=== PATIENT | female | born 1955 | race Caucasian/White ===

== ENCOUNTER → 2020-01-24 11:08 | Outpatient (CLI) | payer MEDICARE, OTHER, SELFPAY ==
--- NOTE | 2020-01-23 18:47 | HP.PCM_ITS ---
History and Physical Date of Admission: 01/24/20 HISTORY AND PHYSICAL - BREAST COMPLAINT ? Lizbeth Rodriguez 1955 ? ? REFERRING PHYSICIAN: Aylin Aguirre ([facility]), * ? CHIEF COMPLAINT: Palpable breast mass, left breast microcalcifications ? HPI: The patient is a 64 year old female with a complaint of a palpable breast mass. The patient notes a mass in the retroaerolar portion of her left breast. The patient has noticed this mass for 4 months. The patient had a mammogram with ultrasound on January 11, 2020 which demonstrated: ? Mammogram - IMPRESSION: SUSPICIOUS FINDING - BIOPSY SHOULD BE CONSIDERED The new grouped pleomorphic calcifications in the left breast are suspicious of malignancy. ?A stereotactic biopsy is recommended. There is no abnormality seen in the left breast to correspond with the discharge from the nipple, however, clinical correlation is recommended. ? Ultrasound: ? IMPRESSION: BENIGN FINDING There is no sonographic evidence of malignancy. The 4 cm cyst in the left breast at 3 o'clock anterior depth is benign. The 2 cm cyst in the left breast at 1 o'clock middle depth is benign. There is no abnormality seen in the left breast to correspond with the discharge from the nipple, however, clinical correlation is recommended. ? She somewhat irregularly perform a self breast exam routinely. She notes no skin changes. She notes occasional clear nipple discharge. She notes no axillary masses. She notes no first-degree family history of breast problems but her aunt has a diagnosis of breast cancer and her aunt and mother were twins. She notes no significant breast trauma or breast difficulties in the past. She notes that her breast cysts were more tender in the past but notes no pain in the cyst currently. ? The patient has had 3 pregnancies. Her last mammogram was 2018. Her last menstrual period was ?. Her first menstrual period was at age ?. ? The patient is being seen by me today at the request of Aylin Aguirre for my opinion and advice regarding abnormal left breast imaging and breast cysts. ? PAST MEDICAL HISTORY PAST MEDICAL HISTORY Diagnosis Date ? Unspecified hypothyroidism ? ? ? PAST SURGICAL HISTORY PAST SURGICAL HISTORY Procedure Laterality Date ? BX OF BREAST; INCISIONAL ? ? ? LUMPECTOMY R BREAST BENIGN ? DELIVERY ONLY ? ? ? , low cervical X3 ? COLONOSCOP W/ OR W/O BRSH SPEC ? 05/05/2018 ? Colonoscopy ? EGD W/O OR W/BRUSH/WASH ? 05/05/2018 ? EGD ? LIGATE FALLOPIAN TUBE ? ? ? Tubal ligation ? PAST SURGICAL HISTORY OF ? ? ? CYST REMOVED ON WRIST ? ? ? CURRENT MEDICATIONS Current Outpatient Medications Medication Sig Dispense Refill ? levothyroxine (SYNTHROID) 112 mcg tablet Take 1 tablet by mouth once daily. Take on empty stomach. For thyroid 30 tablet 3 ? cholecalciferol, vitamin D3, (VITAMIN D3 ORAL) Take by mouth. ? ? ? CALCIUM ORAL Take by mouth. ? ? ? MULTI-VITAMIN ORAL Take by mouth. ? ? ? No current facility-administered medications for this visit. ? ? ALLERGIES: Bactrim [Sulfamethoxazole-Trimethoprim], Codeine, and Sulfa (Sulfonamide Antibiotics) ? PERSONAL HISTORY: SOCIAL HISTORY Social History ? Tobacco Use ? Smoking status: Former Smoker ? ? Types: Cigarettes ? Smokeless tobacco: Never Used ? Tobacco comment: quit 8 years ago Substance Use Topics ? Alcohol use: Yes ? ? Comment: occasionally ? Drug use: No ? FAMILY HISTORY: FAMILY HISTORY FAMILY HISTORY Problem Relation Age of Onset ? other (alzheimers) Mother ? ? diagnosed age early 60's -- possibly related to an MVA ? Coronary Artery Disease Father ? ? first NV age early 70's ? Colon Cancer Father ? ? Liver Disease Father ? ? Cirrhosis ? other (depression) Father ? ? Colon Cancer Other ? ? none ? Diabetes Other ? ? none ? ? REVIEW OF SYMPTOMS: The review of systems data was entered by the nurse and reviewed by me ? Nursing Notes: Xiomara Amador Ma 01/19/2020 4:08 PM Signed ? AMB ROOMING INTAKE FLOWSHEET DATA Risk Screening Do you have concerns about personal safety or safety in the home?: No ? with patient today. ? Xiomara Amador Ma 01/19/2020 4:16 PM Signed REVIEW OF SYSTEMS: General: The patient denies fatigue, denies weight loss, denies weight gain, denies feeling hot, and denies feelings of cold. Eyes: The patient denies glaucoma, denies eye injury/surgery, wears glasses or contacts. Ear/Nose/Throat: The patient notes allergies, denies hayfever, denies ear infections, and denies bloody noses. Cardiovascular: The patient denies chest pain, denies heart disease, denies high blood pressure,denies cardiac stent, denies prior heart attack, denies irregular heart beat, denies high cholesterol, denies poor circulation, denies heart failure, other cardiac issues, denies claudication, denies cold feet, denies peripheral arterial stent. Respiratory: The patient denies tuberculosis, denies pneumonia, denies frequent cough, denies pulmonary embolism, denies shortness of breath, and denies coughing up blood. Gastrointestinal: The patient denies difficulty swallowing, denies acid reflux, denies ulcers, denies vomiting, denies jaundice/hepatitis, denies gallbladder problems, denies black or tarry stools, denies hemorrhoids, denies bleeding from rectum, denies diverticulitis, denies constipation, denies diarrhea, denies loss of stool control, and denies hernias. Kidney/Bladder: The patient denies kidney stones, denies urine infections, and denies bloody urine. Skin: The patient denies a history of skin cancer, denies bleeding/lamar nging moles, and denies a history of skin rash. Neurologic: The patient denies a history of epilepsy/convulsions, denies headaches, denies head/spinal injuries, and denies stroke/TIA. Psychiatric: The patient denies psychiatric medications, denies depression, and denies voices, denies substance abuse. Endocrine: The patient notes thyroid disorders, denies diabetes, and denies hormonal problems. Hematologic: The patient denies a history of bruising, denies bleeding, and denies anemia, denies blood clots. Infections: The patient denies a history of measles and mumps, denies rheumatic fever, and denies sexually transmitted diseases. Musculoskeletal: The patient denies back pain/injury, denies back problems, denies sciatica, denies knee/foot trouble, denies arthritis, or denies gout. ? ? When was patient's last Mammogram screening? 01/11/2020 ? Last Colonoscopy: 2019 ? Xiomara Amador Ma ? PHYSICAL EXAMINATION: ? General: The patient is 64 year old female, well nourished, well hydrated in no acute distress. The patient is oriented to time, place, and person. ? VITALS: Blood pressure 124/80, pulse 86, temperature 36.2 ?C (97.2 ?F), height 158.8 cm (5' 2.5), weight 68.7 kg (151 lb 6.4 oz), last menstrual period 09/05/2005, SpO2 97 %. Body mass index is 27.25 kg/m?. ? HEENT: Normal cephalic, ataumatic, pupils are equally round, sclera are ani cteric, mucous membranes are moist, oropharynx is clear. Neck has no masses, asymmetry or lymphadenopathy. Thyroid is unremarkable. ? Respiratory: Clear to auscultation and percussion. Normal respiratory excursion and pattern. ? Cardiac: Examination is regular rate and rhythm. ? Abdominal exam: Exam deferred Rectal exam: exam deferred Extremities: no clubbing, cyanosis or edema. No adenopathy. ? Breast: Visual inspection reveals no retractions, nipple inversion, or skin changes. Palpation of the right breast reveals no dominant or suspicious masses, but multiple benign-feeling nodules. Palpation of the left breast reveals no dominant or suspicious masses, but multiple benign-feeling nodules. Axillary exam demonstrates no suspicious masses in either the left or right axilla. There is no nipple discharge expressed from either the left or right breast. ? LABORATORY VALUES: As Noted ? RADIOLOGIC STUDIES: As Noted ? Intraoffice ultrasound demonstrated the cysts noted on formal breast ultrasound. The patient didn't wish to have these aspirated. ? ? Assessment IMPRESSION: Simple breast cyst, microcalcifications ? PLAN: I plan to recommend a stereotactic biopsy of the left breast. The planned surgical procedure was discussed extensively with the patient. The risks, benefits, anticipated outcomes and possible complications were mentioned. My staff has also explained the procedure in understandable terms and the patient was given the option to take printed material concerning the planned procedure. The patient had the opportunity to ask questions concerning the planned procedure. The patient freely consents to the planned procedure. ? The patient wishes either to have Dr. Ponce or the breast radiologists at [facility] performed a biopsy-whoever can do this first available. ? ? Diagnoses: (R92.8) Abnormal finding on breast imaging (primary encounter diagnosis)
--- NOTE | 2020-01-24 19:12 | PCM.PN.BLA ---
Progress Note Unable to localize mammographic abnormality for biopsy. Will therefore follow up with short term repeat mammograms. Patient agrees with this. Discussed with Dr. Stephenson (this is his patient)
== END ==
PROVIDERS: PCP Family Medicine; Referring Provider Surgery; Visit Provider Surgery
DX: R92.8 Other abnormal and inconclusive findings on diagnostic imaging of breast (principal)
CPT/HCPCS: 19081

== ENCOUNTER 2023-07-20 14:19 | Emergency (ER) | payer MEDICARE, OTHER, SELFPAY ==
[2023-07-20 14:19] VITALS: BP 158/87; PULSE 62; RESP 18; TEMP 36.3; O2SAT 99; BMI 25.5
[2023-07-20 14:29] VITALS: PULSE 63; RESP 13; O2SAT 96
[2023-07-20] MEDS: Ondansetron ODT 4 MG Tablet PO (15:21)
--- NOTE | 2023-07-20 15:54 | EDS_ITS ---
HPI History of Present Illness Chief Complaint: Dizziness Detail of Chief Complaint: Dizziness which she describes a spinning sensation. Informant: patient and spouse/S.O. Onset/Context/Timing Onset: Today and Hours Context: Sudden Onset Timing: Intermittent Quality: Episode when she turned to the right described as spinning sensation Location: Return to the right Current Severity: Gone (Complains of mild nausea.) Maximum Severity: Severe Worsened by: Turning to the right Relieved by: Resolved after a minute Associated Symptoms Associated Symptoms: nausea and loss of balance no diplopia Narrative Narrative: Patient is a 67-year-old woman with history of vertigo and hypothyroidism who presents with abrupt onset of dizziness which she described as spinning sensation with nausea. She lost her balance. She denies double vision blurred vision loss of vision. No trouble speech or swallowing. Denies paresthesia, anesthesia medics. She denies vertigo at this present time. She denies headache. There is no history head trauma. She denies ringing or ears or decreased hearing. She denies neck pain. She denies cardiac or respiratory symptoms. Prior similar symptoms: Yes Recent Illness/Hospitalization: No PFSH PFS Medical History Thyroid disease Home Medications levothyroxine 112 mcg tablet (Synthroid) 112 mcg PO DAILY 07/20/23 [History Last Taken Unknown] Allergy/AdvReac Type Severity Reaction Status Date / Time Sulfa (Sulfonamide Allergy Other Verified 07/20/23 14:19 Antibiotics) sulfamethoxazole Allergy Other Verified 07/20/23 14:19 [From Bactrim] trimethoprim [From Bactrim] Allergy Other Verified 07/20/23 14:19 codeine AdvReac Nausea Verified 07/20/23 14:19 Surgical History H/O section Social History (Updated 07/20/23 @ 14:30 by Verónica Orozco) household members: spouse housing: house Smoking Status: Current some day smoker ROS ROS ED Constitutional Constitutional ED: Denies chills, fever(s), subjective or sweats Eyes Eyes: Denies blurry vision, change in vision or diplopia ENT ENT ED: Denies ear pain, rhinorrhea or sore throat Cardiovascular Cardiovascular: Denies chest pain, palpitations or racing heartbeat Respiratory/Chest Respiratory/Chest: Denies cough, dyspnea or dyspnea on exertion Gastrointestinal Gastrointestinal: Reports nausea; Denies abdominal pain or vomiting Genitourinary Genitourinary ED: Denies dysuria, hematuria or urinary frequency Musculoskeletal Musculoskeletal: Denies arthralgias, back pain, myalgias or neck pain Integumentary Denies rash Neurologic Neurologic: Reports other Details: Vertigo ; Denies headache(s), paresthesias or weakness Endocrine Endocrinology: Denies cold intolerance or heat intolerance Hematologic/Lymphatic Hematologic/Lymphatic: Reports systems reviewed and no addt'l complaints, except as documented EXAM Physical Exam Const Vital Signs: 07/20/23 14:19 07/20/23 14:29 07/20/23 14:40 Temperature 97.3 F L Temperature Source Temporal Pulse Rate 62 63 Respiratory Rate 18 13 Respiratory Effort Normal Respiratory Pattern Normal Blood Pressure 158/87 H Blood Pressure Mean 110 Pulse Ox 99 96 Oxygen Delivery Method Room Air Room Air Positive well nourished and well developed General Appearance ED: well developed and NAD; Negative for cyanotic, diaphoretic or pallor HEENT Reports moist mucous membranes HEENT Narrative: Head is atraumatic and normocephalic. Ears normal. External auditory canal normal. TMs normal. She does use hearing aids. Nares patent. Uvula midline. No deviation with protrusion. Posterior pharynx is normal. Eyes PERRL and EOMs intact bilaterally Eyes Narrative: There is no nystagmus. General Eye ED: Negative for pale conjunctiva or scleral icterus Neck no lymphadenopathy, supple and no JVD Neck Narrative: There is no right or left carotid bruit. Chest Wall inspection of chest normal and palpation of chest normal Resp normal respiratory effort and clear to auscultation bilaterally Cardio regular rate, regular rhythm, S1 normal heart sound, S2 normal heart sound and no murmurs GI normal to inspection, nondistended, normoactive bowel sounds, non-tender, non- distended and no masses; Negative for hepatosplenomegaly Back/Spine no CVA tenderness Extremity normal to inspection General Extremety ED: Negative for edema or tenderness General Extremity: Negative for edema Neuro oriented x3, CN's II-XII intact bilaterally and no sensory deficits noted Neuro Narrative: There is no dysmetria. The eye askew test and hints test were both negative. Palmer Hallpike maneuver caused her nausea rising from supine to upright position. There was no nystagmus and she denied vertigo. Sensorium / Orientation: alert Motor Exam: strength 5/5 throughout Psych mental status grossly normal Mood & Affect: depressed Skin no rashes or lesions noted, no wounds and skin turgor normal General Skin Exam: Negative for jaundice or pallor MDM MDM MDM Narrative Medical decision making narrative: With patient reporting symptoms lasting 1 minute. She has symptoms when she opens her eyes. She has symptoms return to the right. This is consistent with benign paroxysmal positional vertigo. She has a normal neurologic exam. Patient was treated with Zofran. Her nausea resolved. She has seen Dr. Mejia in the past. She was instructed to follow-up with him. In my opinion imaging is not indicated nor will it be helpful. History & Record Review Additional record(s) reviewed:: Prior outpatient record and Prior ED visit Discharge Plan Triage Chief Complaint: Dizziness ED Provider: Phil Blum Dx/Rx/DC Orders Clinical Impression: Benign paroxysmal positional vertigo of right ear Instructions: ED BPV Vertigo Prescriptions: No Action levothyroxine [Synthroid] 112 mcg tablet 112 mcg PO DAILY Patient Comments: TAKE 1 TABLET BY MOUTH ONCE DAILY. TAKE ON EMPTY STOMACH. FOR THYROID. Primary Care Provider: Cristian Lewis Referrals: Matt Jalloh MD [Med Staff - Active Staff] - 1 Week Cristian Lewis MD [Primary Care Provider] - Activity Restrictions/Additional Instructions: Recommend watching YouTube or googling Colin maneuver Disposition Disposition: Home, Self Care
[2023-07-20 16:07] VITALS: BP 148/93; PULSE 67; RESP 18; TEMP 36.3; O2SAT 100
--- OUTSIDE RECORDS SUMMARY | 2023-07-20 18:21 | XMS RPT_ITS | CCD ---
Author Name Unknown Address [address] [place] [address] Organization [facility] Care Team Providers Care Manager [employer] Name Role Phone Alessio Lewis MD Primary Care Provider RADHA HOLLIS Attending Unavaila ALESSIO Enamorado Primary Care Unavailable AYLIN AGUIRRE Attending Unavailable ALESSIO LEWIS Primary Care Unavailable AYLIN AGUIRRE Referring Unavailable LAESSIO LEWIS Primary Care Unavailable Aminta DEL RIO Referring Unavailable ZEINAB, ALESSIO Rollins Primary Care Unavailable RADHA HOLLIS Attending Unavaila ALESSIO Enamorado Primary Care Unavailable ALESSIO LEWIS Primary Care Unavailable XIOMARA PONCE Attending Unavailable ALESSIO LEWIS Primary Care Unavailable Aminta DEL RIO Attending Unavailable ALESSIO LEWIS Primary Care Unavailable Aminta DEL RIO Referring Unavailable ZEINAB, ALESSIO Rollins Primary Care Unavailable Aminta DEL RIO Referring Unavailable ALESSIO LEWIS Primary Care Unavailable ALESSIO LEWIS Primary Care Unavailable ALESSIO LEWIS Primary Care Unavailable ALESSIO LEWIS Attending Unavailable ALESSIO LEWIS Primary Care Unavailable ALESSIO LEWIS Attending Unavailable ALESSIO LEWIS Primary Care Unavailable ALESSIO LEWIS Referring Unavailable Aminta DEL RIO Referring Unavailable ALESSIO LEWIS Primary Care Unavailable ALESSIO LEWIS Primary Care Unavailable RADHA HOLLIS Attending Unavaila ALESSIO Enamorado Primary Care Unavailable Aminta DEL RIO Attending Unavailable ALESSIO LEWIS Primary Care Unavailable Aminta DEL RIO Attending Unavailable Allergies Allergy Classification Reported Allergen(s) Allergy Type Date of Onset Reaction(s) Facility (20 sources) Codeine; Translations: [CODEINE] Drug Allergy 5 GI U[facility]et [facility] Work Phone: (20 sources) Sulfamethoxazole / Trimethoprim; Translations: [SULFAMETHOXAZOLE-TR IMETHOPRIM] Drug Allergy 5 [facility] Work Phone: (20 sources) Sulfonamides (Antibiotic); Translations: [SULFA (SULFONAMIDE ANTIBIOTICS)] Propensity to adverse reactions 6 GI Upset [facility] Work Phone: Medications Current Medications Medication Drug Class(es) Dates Sig (Normalized) Sig (Original) amoxicillin 875 mg / clavulanate 125 mg oral tablet (1 source) Penicillin-class Antibacterial Start: 01-26-2023 End: 02-05-2023 take 1 tablet by mouth twice daily amoxicillin-clav ulanic acid (AUGMENTIN) 875-125 mg per tablet Indications: Viral bronchitis Take 1 tablet by mouth twice daily for 10 days. 20 tablet 0 01/26/2023 02/05/2023 Active Completed/Discontinued Medications Medication Drug Class(es) Dates Sig (Normalized) Sig (Original) Calcium (20 sources) Phosphate Binder, Calcium CALCIUM ORAL Take by mouth. 0 Active Problems Active Problems Problem Classification Problem Date Documented Date Episodic/Chronic Acute and chronic tonsillitis (1 source) Hypertrophy of tonsils; Translations: [Enlarged tonsils] Onset: 03-02-2023 Chronic Acute bronchitis (1 source) Viral bronchitis; Translations: [Acute bronchitis due to other specified organisms] 01-26-2023 Episodic Conditions associated with dizziness or vertigo (1 source) Vertigo; Translations: [Dizziness and giddiness] Episodic Inflammation; infection of eye (except that caused by tuberculosis or sexually transmitteddisease) (1 source) Bacterial conjunctivitis; Translations: [Unspecified conjunctivitis] Episodic Lymphadenitis (2 sources) Localized enlarged lymph nodes; Translations: [Localized enlarged lymph nodes] Onset: 03-02-2023 12-29-2022 Episodic Other and unspecified benign neoplasm (1 source) Personal history of colonic polyps; Translations: [History of colonic polyps] Onset: 05-19-2023 Episodic Other ear and sense organ disorders (20 sources) Sensorineural hearing loss, bilateral; Translations: [Sensorineural hearing loss, bilateral] Onset: 12-11-2016 12-11-2016 Chronic Other liver diseases (3 sources) Elevated liver enzymes level; Translations: [Abnormal levels of other serum enzymes] Episodic Other lower respiratory disease (2 sources) Cough; Translations: [Cough, unspecified type] Episodic Other upper respiratory infections (2 sources) Chronic sinusitis; Translations: [Chronic sinusitis, unspecified] Onset: 02-23-2023 02-23-2023 Chronic Other upper respiratory infections (4 sources) Pharyngitis; Translations: [Acute pharyngitis, unspecified] Onset: 03-02-2023 Episodic Residual codes; unclassified (1 source) Menopause present; Translations: [Asymptomatic menopausal state] 03-16-2023 Episodic Residual codes; unclassified (2 sources) Asymptomatic menopausal state; Translations: [Asymptomatic menopausal state] Onset: 12-05-2022 Episodic Thyroid disorders (20 sources) Hypothyroidism; Translations: [Hypothyroidism, unspecified] Onset: 05-18-2006 05-30-2009 Chronic Unclassified (1 source) Acute cough; Translations: [Acute cough] Onset: 08-06-2022 Past or Other Problems Problem Classification Problem Date Documented Da te Episodic/Chronic Chronic obstructive pulmonary disease and bronchiectasis (2 sources) Bronchitis; Translations: [Bronchitis, not specified as acute or chronic] Onset: 08-06-2022 Episodic Other bone disease and musculoskeletal deformities (20 sources) Osteopenia; Translations: [Other specified disorders of bone density and structure, unspecified site] Onset: 06-06-2014 06-06-2014 Episodic Other liver diseases (1 source) Abnormal levels of other serum enzymes; Translations: [Elevated liver enzymes] Onset: 12-05-2022 Episodic Other screening for suspected conditions (not mental disorders or infectious disease) (7 sources) Patient encounter status; Translations: [Encounter for screening mammogram for malignant neoplasm of breast] Onset: 11-21-2022 Episodic Results Test Name Value Interpretation Reference Range Facil ity Vital Signs Date Time Vital Sign Value Performing Clinician Facility 02-23-2023 10:21-0400 Body temperature 97.7 [degF] SASHA Del Rio PA-C Work Phone: [facility] 02-23-2023 10:21-0400 Body weight 60.33 kg SASHA Del Rio PA-C Work Phone: [facility] 02-23-2023 10:21-0400 Diastolic blood pressure 72 mm[Hg] NA Del Rio PA-C Work Phone: [facility] 02-23-2023 10:21-0400 Heart rate 76 /min NA Del Rio PA-C Work Phone: [facility] 02-23-2023 10:21-0400 Respiratory rate 18 /min NA Del Rio PA-C Work Phone: [facility] 02-23-2023 10:21-0400 SaO2% (BldA) [Mass fraction] 97 % NA Del Rio PA-C Work Phone: [facility] 02-23-2023 10:21-0400 Systolic blood pressure 130 mm[Hg] NA Del Rio PA-C Work Phone: [facility] 01-26-2023 08:43-0400 Body temperature 98.1 [degF] NA Del Rio PA-C Work Phone: [facility] 01-26-2023 08:43-0400 Body weight 61.42 kg NA Del Rio PA-C Work Phone: [facility] 01-26-2023 08:43-0400 Diastolic blood pressure 84 mm[Hg] NA Del Rio PA-C Work Phone: [facility] 01-26-2023 08:43-0400 Heart rate 76 /min NA Del Rio PA-C Work Phone: [facility] 01-26-2023 08:43-0400 Respiratory rate 18 /min NA Del Rio PA-C Work Phone: [facility] 01-26-2023 08:43-0400 SaO2% (BldA) [Mass fraction] 94 % NA Del Rio PA-C Work Phone: [facility] 01-26-2023 08:43-0400 Systolic blood pressure 138 mm[Hg] NA Del Rio PA-C Work Phone: [facility] 11-22-2022 09:02-0400 Body temperature 97.9 [degF] Bill Fernandez PA Work Phone: [facility] 11-22-2022 09:02-0400 Body weight 61.24 kg Krislyn Aberegg PA Work Phone: [facility] 11-22-2022 09:02-0400 Diastolic blood pressure 82 mm[Hg] Krislyn Aberegg PA Work Phone: [facility] 11-22-2022 09:02-0400 Heart rate 62 /min Krislyn Aberegg PA Work Phone: [facility] 11-22-2022 09:02-0400 Respiratory rate 21 /min Krislyn Aberegg PA Work Phone: [facility] 11-22-2022 09:02-0400 SaO2% (BldA) [Mass fraction] 99 % Krislyn Aberegg PA Work Phone: [facility] 11-22-2022 09:02-0400 Systolic blood pressure 128 mm[Hg] Krislyn Aberegg PA Work Phone: [facility] 08-06-2022 16:21-0500 Body height 160 cm Alessio Lewis MD Work Phone: [facility] 08-06-2022 16:21-0500 Body temperature 100.29 [degF] Alessio Lewis MD Work Phone: [facility] 08-06-2022 16:21-0500 Body weight 59.88 kg Alessio Lewis MD Work Phone: [facility] 08-06-2022 16:21-0500 Diastolic blood pressure 84 mm[Hg] Alessio Lewis MD Work Phone: [facility] 08-06-2022 16:21-0500 Heart rate 82 /min Alessio Lewis MD Work Phone: [facility] 08-06-2022 16:21-0500 SaO2% (BldA) [Mass fraction] 96 % Alessio Lewis MD Work Phone: [facility] 08-06-2022 16:21-0500 Systolic blood pressure 114 mm[Hg] Alessio Lewis MD Work Phone: [facility] 01-01-2022 11:47-0400 Body height 160 cm Alessio Lewis MD Work Phone: [facility] 01-01-2022 11:47-0400 Body temperature 98.8 [degF] Alessio Lewis MD Work Phone: [facility] 01-01-2022 11:47-0400 Body weight 64.59 kg Alessio Lewis MD Work Phone: [facility] 01-01-2022 11:47-0400 Diastolic blood pressure 68 mm[Hg] Alessio Lewis MD Work Phone: [facility] 01-01-2022 11:47-0400 Heart rate 75 /min Alessio Lewis MD Work Phone: [facility] 01-01-2022 11:47-0400 SaO2% (BldA) [Mass fraction] 94 % Alessio Lewis MD Work Phone: [facility] 01-01-2022 11:47-0400 Systolic blood pressure 100 mm[Hg] Alessio Lewis MD Work Phone: [facility] 10-29-2021 13:07-0400 Body weight 64.86 kg Alessio Lewis MD Work Phone: [facility] 10-29-2021 13:07-0400 Diastolic blood pressure 82 mm[Hg] Alessio Lewis MD Work Phone: [facility] 10-29-2021 13:07-0400 Heart rate 68 /min Alessio Lewis MD Work Phone: [facility] 10-29-2021 13:07-0400 Respiratory rate 16 /min Alessio Lewis MD Work Phone: [facility] 10-29-2021 13:07-0400 SaO2% (BldA) [Mass fraction] 96 % Alessio Lewis MD Work Phone: [facility] 10-29-2021 13:07-0400 Systolic blood pressure 120 mm[Hg] Alessio Lewis MD Work Phone: [facility] Encounters Encounter Date Encounter Type Care Provider Facility Start: 05-19-2023 End: 05-20-2023 ambulatory ALESSIO LEWIS Facility:[facility] Start: 03-23-2023 End: 03-23-2023 ambulatory RADHA ESPINAL Facility:[facility] Start: 03-23-2023 End: 03-23-2023 Patient encounter procedure Radha Espinal AUD Work Phone: Audiology Procedures Date Procedure Procedure Detail Performing Clinician Start: 03-16-2023 Dxa bone density clayton dy 1/> sites axial skel M Zaki Del Rio PA-C Work Phone: Start: 12-29-2022 Ct soft tissue neck w/o contrast material M Zaki Del Rio PA-C Work Phone: Start: 12-16-2022 Us soft tissue head & neck real time imge docm M Zaki Del Rio PA-C Work Phone: Start: 12-16-2022 Lipid 1996 panel - S hiro or Plasma NA Del Rio PA-C Work Phone: Start: 11-21-2022 End: 11-21-2022 Mammography Taya Trujillo MD Work Phone: Start: 01-01-2022 STREP A MOLECULAR (POC) Alessio Lewis MD Work Phone: Start: 11-04-2021 Us abdominal real ti me w/image limited Alessio Lewis MD Work Phone: Start: 10-31-2021 PETE SCREENING W OSMAN Paula Lewis MD Work Phone: Start: 10-31-2021 Mammography Screen Wst r Start: 10-29-2021 Adult depression scr eening assessment Alessio Lewis MD Work Phone: Start: 02-07-2019 Mammography Alessio Marie MD Work Phone: Start: 05-05-2018 Colonoscopy Alessio Marie MD Work Phone: Start: 08-18-2017 Adult depression scr eening assessment Alessio Lewis MD Work Phone: Plan of Treatment Date Care Activity Detail Author Start: 11-22-2029 Urine microalbumin profile [facility] Start: 12-17-2027 Lipid 1996 panel - Serum or Plasma Lipid Screening [facility] Start: 12-17-2027 LIPID SCREEN LIPID SCREEN [facility] Start: 03-02-2026 Diabetes Screening Diabetes Screening [facility] Start: 12-16-2025 DIABETES SCREEN DIABETES SCREEN [facility] Start: 12-16-2025 Diabetes Screening Diabetes Screening [facility] Start: 10-03-2024 DIABETES SCREEN DIABETES SCREEN [facility] Start: 03-02-2024 Annual PCP Team Chronic Disease Visit Annual PCP Team Chronic Disease Visit [facility] Start: 02-24-2024 Annual PCP Team Chronic Disease Visit Annual PCP Team Chronic Disease Visit [facility] Start: 01-27-2024 ANNUAL PCP TEAM CHRONIC DISEASE VISIT ANNUAL PCP TEAM CHRONIC DISEASE VISIT [facility] Start: 12-06-2023 ANNUAL PCP TEAM CHRONIC DISEASE VISIT ANNUAL PCP TEAM CHRONIC DISEASE VISIT [facility] Start: 11-22-2023 Mammography [facility] Start: 08-07-2023 ANNUAL PCP TEAM CHRONIC DISEASE VISIT ANNUAL PCP TEAM CHRONIC DISEASE VISIT [facility] Start: 07-10-2023 ANNUAL PCP TEAM CHRONIC DISEASE VISIT ANNUAL PCP TEAM CHRONIC DISEASE VISIT [facility] Start: 05-05-2023 Colonoscopy COLONOSCOPY [facility] Start: 05-05-2023 COLORECTAL CANCER SCREENING COLORECTAL CANCER SCREENING [facility] Start: 01-30-2023 Covid-19 Vaccine ( season) Covid-19 Vaccine () [facility] Start: 01-30-2023 Influenza vaccination [facility] Start: 01-01-2023 ANNUAL PCP TEAM CHRONIC DISEASE VISIT ANNUAL PCP TEAM CHRONIC DISEASE VISIT [facility] Start: 10-31-2022 Mammography MAMMOGRAM [facility] Start: 10-29-2022 Adult depression screening assessment DEPRESSION SCREENING [facility] Start: 10-29-2022 ANNUAL PCP TEAM CHRONIC DISEASE VISIT ANNUAL PCP TEAM CHRONIC DISEASE VISIT [facility] Start: 07-24-2022 COVID-19 VACCINE (5 - Pfizer series) COVID-19 VACCINE (5 - Pfizer series) [facility] Start: 06-01-2022 ADVANCE DIRECTIVE DISCUSSION ADVANCE DIRECTIVE DISCUSSION [facility] Start: 01-01-2023 DEPRESSION ASSESSMENT DEPRESSION ASSESSMENT [facility] Start: 02-18-2022 ANNUAL PCP TEAM CHRONIC DISEASE VISIT ANNUAL PCP TEAM CHRONIC DISEASE VISIT [facility] Start: 01-30-2022 Influenza vaccination INFLUENZA (#1) [facility] Start: 12-25-2021 End: 02-24-2022 HEPATIC FUNCTION PNL HEPATIC FUNCTION PNL Lab Routine Elevated liver enzymes Expected: 12/25/2021, Expires: 02/24/2022 [facility] Work Phone: Immunizations Immunization Date Immunization Notes Care Provider Beverly chavez 12-05-2022 pneumococcal (PCV20) vaccine, 20 valent (PREVNAR 20) Radha CARRILLO Work Phone: [facility] 03-09-2021 influenza, high-dose , quadrivalent vaccine (FLUZONE HIGH DOSE QUADRIVALENT) Alessio Lewis MD Work Phone: [facility] 03-09-2021 influenza virus vaccine, unspecified formulation SASHA Del Rio PA-C Work Phone: [facility] 09-04-2020 COVID-19 vaccine, ag e 12+ yr (PFIZER-BIONTECH - PURPLE TOP) Alessio Lewis MD Work Phone: [facility] 08-14-2020 COVID-19 vaccine, ag e 12+ yr (PFIZER-BIONTECH - PURPLE TOP) Alessio Lewis MD Work Phone: [facility] 12-07-2019 pneumococcal conjuga te vaccine, 13 valent Alessio Lewis MD Work Phone: [facility] 11-23-2019 tetanus toxoid, redu marcin diphtheria toxoid, and acellular pertussis vaccine, adsorbed Alessio Lewis MD Work Phone: [facility] 06-06-2014 tetanus toxoid, redu marcin diphtheria toxoid, and acellular pertussis vaccine, adsorbed Alessio Lewis MD Work Phone: [facility] Work Phone: 03-15-2012 influenza virus vaccine, unspecified formulation Alessio Lewis MD Work Phone: [facility] Payers Date Payer Category Payer Medicare [id number] 2019 Unknown MMO MMO MEDICARE SUPPLEMENT [id number] 2019-Present [phone] [address] [place] [address] Indemnity [id number] 2019 Unknown MMO MMO MEDICARE SUPPLEMENT [id number] 2019-Present [phone] [address] [place] [address] Indemnity [id number] 2018 Medicare MEDICARE MEDICAR E A AND B [id number] 2018-Present [phone] [address] [address] [place] [address] Medicare [id number] 2018 Medicare MEDICARE MEDICAR E A AND B [id number] 2018-Present [phone] [place] [address] Medicare [id number] 2018 Medicare [id number] Social History Date Type Detail Facility Start: 12-12-2020 Tobacco smoking status NHIS Occasional tobacco smoker [facility] End: 10-29-2020 History of tobacco use Cigarette Smoker [facility] Start: 12-12-2020 End: 12-05-2022 Tobacco use and exposure Smokeless tobacco non-user [facility] Start: 01-27-2021 End: 03-02-2023 Alcohol intake Current drinker of alcohol (finding) [facility] Start: 12-07-2019 End: 01-01-2022 History SDOH Social Connections Phone 5 [facility] Start: 12-07-2019 End: 01-01-2022 History SDOH Social Connections Get Together 3 [facility] Start: 12-07-2019 End: 01-01-2022 History SDOH Social Connections Membership 1 [facility] Start: 12-07-2019 End: 01-01-2022 History SDWA Social Connections Meetings 2 [facility] Start: 12-07-2019 Education 21 [facility] Start: 1955 Sex Assigned At Female [facility] Start: 09-24-2021 End: 01-01-2022 Exposure to SARS-CoV-2 (event) Not sure [facility] Start: 10-29-2021 End: 12-05-2022 Tobacco smoking status NHIS Ex-smoker [facility] End: 10-29-2020 History of tobacco use Current smoker [facility] Start: 10-15-2021 End: 10-25-2021 Exposure to SARS-CoV-2 (event) Unable to assess [facility] Work Phone: Start: 01-01-2022 History SDOH Physical Activity DPW 6 [facility] Start: 01-01-2022 History SDOH Physical Activity MPS 15 [facility] Start: 04-28-2022 Tobacco Comment quit 8 years ago [facility] Start: 01-01-2022 End: 12-05-2022 Cigarettes smoked current (pack per day) - Reported 0.3 [facility] Start: 01-01-2022 End: 12-05-2022 Social connection and isolation panel [facility] Do you belong to any clubs or organizations such as oriental orthodox groups, unions, fraternal or athletic groups, or school groups? Yes [facility] Are you now , , , , never or living with a partner? [facility] How often to you hav e a drink containing alcohol? Monthly or less [facility] How many standard dr inks containing alcohol do you have on a typical day? 1 or 2 [facility] How often do you hav e 6 or more drinks on 1 occasion? Never [facility] How hard is it for y ou to pay for the very basics like food, housing, medical care, and heating Not hard at all [facility] Do you feel stress - tense, restless, nervous, or anxious, or unable to sleep at night because your mind is troubled all the time - these days [OSQ] Not at all [facility] (I/We) worried wheleo er (my/our) food would run out before (I/we) got money to buy more. Never true [facility] In the past 12 month s, was there a time when you were not able to pay the mortgage or rent on time? No [facility] Start: 02-11-2020 Gender identity Identifies as female gender (finding) [facility] Start: 02-11-2020 Sexual orientation Heterosexual (finding) [facility] Clinical Notes 05-30-2009 to 05-19-2023 Radha Hollis AUD - 03/23/2023 7:52 PM EDTCJose Angel olivera RT([place]) - 03/16/2023 12:30 PM EDTTelephone Encounter - Vishal Parsons LPN - 03/03/2023 11:43 AM EDTPatient Instructions Note Date & Type Note Facility 05-19-2023 Note HNO ID: [id number] Author: Xiomara Ponce MD Service: ? Author Type: Physician Type: Progress Notes Filed: 05/20/2023 8:34 PM Note Text: HISTORY AND PHYSICAL Sarah Rodriguez 1955 REFERRING PHYSICIAN: No ref. provider found CHIEF COMPLAINT: Consult (Colonoscopy/Previous colonoscopy was 09/2017, 5 year f/u) HPI: The patient is a 67 year old female referred for endoscopy. Sarah notes no history of colon complaints. Her father was diagnosed with colon cancer in his 70s. Patient denies blood in stools. She denies chronic abdominal pain. She denies changes in bowel habits. She has a history of colon polyps, last colonoscopy 2017 with findings of tubular adenoma of sigmoid colon, < 1 cm PAST MEDICAL HISTORY Diagnosis Date Allergies Unspecified hypothyroidism PAST SURGICAL HISTORY Procedure Laterality Date BIOPSY BREAST OPEN INCISIONAL LUMPECTOMY R BREAST BENIGN DELIVERY ONLY , low cervical X3 COLONOSCOPY FLX DX W/COLLJ SPEC WHEN PFRMD 05/05/2018 Colonoscopy ESOPHAGOGASTRODUODENOSCOPY TRANSORAL DIAGNOSTIC 05/05/2018 EGD LIG/TRNSXJ FLP TUBE ABDL/VAG APPR UNI/BI Tubal ligation PAST SURGICAL HISTORY OF CYST REMOVED ON WRIST Current Outpatient Medications Medication Sig levothyroxine (SYNTHROID) 112 mcg tablet Take 1 tablet by mouth once daily. Take on empty stomach. For thyroid cholecalciferol, vitamin D3, (VITAMIN D3 ORAL) Take by mouth once daily. CALCIUM ORAL Take by mouth once daily. peg 3350-Electrolytes (GOLYTELY) 236-22.74-6.74 -5.86 gram suspension Take 4,000 mL by mouth one time only for 1 dose. Refer to printed prep instructions from your provider. No current facility-administered medications for this visit. ALLERGIES: Bactrim [Sulfamethoxazole-Trimethoprim], Codeine, and Sulfa (Sulfonamide Antibiotics) PERSONAL HISTORY: Social History Tobacco Use Smoking status: Former Packs/day: 0.25 Years: 2.00 Additional pack years: 0.00 Total pack years: 0.50 Types: Cigarettes Quit date: 10/29/2020 Years since quittin.5 Smokeless tobacco: Never Vaping Use Vaping Use: Never used Substance Use Topics Alcohol use: Yes Comment: occasionally Drug use: No FAMILY HISTORY Problem Relation Age of Onset other (alzheimers) Mother diagnosed age early 60's -- possibly related to an MVA Coronary Artery Disease Father first NH age early 70's Colon Cancer Father Liver Disease Father Cirrhosis other (depression) Father other (osteopenia) Sister other (atrial fibrillation) Brother Ischemic Heart Disease Brother Depression Paternal Grandmother Heart Attack Paternal Grandfather Diabetes Other none The review of systems data was entered by the nurse and reviewed by ne Nursing Notes: Lou Ochoa LPN 05/19/2023 11:29 AM Signed REVIEW OF SYSTEMS: General: The patient denies fatigue, denies weight loss, denies weight gain, denies feeling hot, and denies feelings of cold. Eyes: The patient denies glaucoma, denies eye injury/surgery, wears glasses or contacts. Ear/Nose/Throat: The patient notes allergies, denies hayfever, denies ear infections, and denies bloody noses. Cardiovascular: The patient denies chest pain, denies heart disease, denies high blood pressure,denies cardiac stent, denies prior heart attack, denies irregular heart beat, denies high cholesterol, denies poor circulation, denies heart failure, other cardiac issues, denies claudication, denies cold feet, denies peripheral arterial stent. Respiratory: The patient denies tuberculosis, notes pneumonia, notes frequent cough, denies pulmonary embolism, denies shortness of breath, and denies coughing up blood. Gastrointestinal: The patient denies difficulty swallowing, denies acid reflux, denies ulcers, notes vomiting, denies jaundice/hepatitis, denies gallbladder problems, denies black or tarry stools, denies hemorrhoids, denies bleeding from rectum, denies diverticulitis, notes constipation, denies diarrhea, denies loss of stool control, and denies hernias. Kidney/Bladder: The patient denies kidney stones, notes urine infections, and denies bloody urine. Skin: The patient denies a history of skin cancer, denies bleeding/changing moles, and denies a history of skin rash. Neurologic: The patient denies a history of epilepsy/convulsions, notes headaches, denies head/spinal injuries, and denies stroke/TIA. Psychiatric: The patient denies psychiatric medications, denies depression, and denies voices, denies substance abuse. Endocrine: The patient notes thyroid disorders, denies diabetes, and denies hormonal problems. Hematologic: The patient denies a history of bruising, denies bleeding, and denies anemia, denies blood clots. Infections: The patient notes a history of measles and mumps, denies rheumatic fever, and denies sexually transmitted diseases. Musculoskeletal: The patient denies back pain/injury, denies back (more content not included)... [facility] 03-23-2023 Note HNO ID: [id number] Author: Radha Hollis AUD Service: ? Author Type: Fruit Bar Maker Type: Progress Notes Filed: 03/23/2023 7:57 PM Note Text: Head and Neck Foster HEARING AID DISPENSING Name: Sarah Rodriguez [facility] [place]#: [id number] Date of Service: 03/23/2023 Date of : 1955 Age: [age] year old RIGHT: Real 2 R SN: [id number] Food Production Supervisor/Dome: 2-85/micro mold LEFT: Real 2 R SN: [id number] Food Production Supervisor/Dome: 3-85/micro mold Fitting Date: 02/26/2023 Repair Warranty Expiration Date: 03/06/2026 Loss/Damage Expiration Date: 03/06/2026 Fitting Fruit Bar Maker: Lorena Charles, BRIANNA/Linn Nieves was seen today for the dispensing of the above devices within the Ktlmv-ui-Wvqehj period. The IOI-HUSSEIN was administered to subjectively assess the hearing aids and indicated wearing the aids more than 8 hours a day, that they helped very much, are very much worth it and that her enjoyment of life is very much better. In addition, Sarah Rodriguez stated the following regarding the devices: She reports hearing a lot of things that she hasn't heard in a long time. She is using her VC to make adjustments as needed. She declined any programming adjustments today. I assisted her in pairing her devices to the [employer] Gas Manager junaid. The Hearing Aid Verification Orientation Checklist (HAVOC) was administered to verify Sarah Rodriguez ability to operate the devices. The following items were assessed: RECHARGEABLLE DEVICES Removing the device from the RIGHT ear no difficulty Removing the device from the LEFT ear no difficulty Placement in/Removal from recharging highballer no difficulty Recognize meaning of lights no difficulty Change the dome/wax guards/slim tubing, if appropriate no difficulty Inserting device into the RIGHT ear no difficulty Inserting the device into the LEFT ear no difficulty Use with telephone (placement/program/streaming) no difficulty Use of accessories (microphones/streamers) not applicable Sarah Rodriguez indicated that they were very satisfied with the devices today. Based on the above statements/comments/outcomes, it is recommended that the patient be discharged and return as needed. It is recommended that the patient have a annual Hearing Aid Check to clean/check and reprogram the devices, if needed. If change in hearing has been noted, it is recommended that the patient schedules a hearing test as well. Appointments within the first year are at no charge. Appointments following the first year are a fee for service appointment. It is recommended that a medical referral is obtain for any audiologic testing. Lorena Charles, [facility] 03-23-2023 History of Presen t illness Narrative [facility] Neck [facility] HEARING AID DISPENSING Name: Sarah Rodriguez [facility]#: [id number] Date of Service: 03/23/2023 Date of : 1955 Age: [age] year old RIGHT: Real 2 R SN: [id number] Food Production Supervisor/Dome: 2-85/micro mold LEFT: Real 2 R SN: [id number] Food Production Supervisor/Dome: 385/micro mold Fitting Date: 02/26/2023 Repair Warranty Expiration Date: 03/06/2026 Loss/Damage Expiration Date: 03/06/2026 Fitting Fruit Bar Maker: Lorena Charles, BRIANNA/A Sarah was seen today for the dispensing of the above devices within the Ybzef-sv-Zgkpcr period. The IOI-HUSSEIN was administered to subjectively assess the hearing aids and indicated wearing the aids more than 8 hours a day, that they helped very much, are very much worth it and that her enjoyment of life is very much better. In addition, Sarah Rodriguez stated the following regarding the devices: She reports hearing a lot of things that she hasn't heard in a long time. She is using her VC to make adjustments as needed. She declined any programming adjustments today. I assisted her in pairing her devices to the [employer] Gas Manager junaid. The Hearing Aid Verification Orientation Checklist (HAVOC) was administered to verify Sarah Rodriguez ability to operate the devices. The following items were assessed: RECHARGEABLLE DEVICES Removing the device from the RIGHT ear no difficulty Removing the device from the LEFT ear no difficulty Placement in/Removal from recharging highballer no difficulty Recognize meaning of lights no difficulty Change the dome/wax guards/slim tubing, if appropriate no difficulty Inserting device into the RIGHT ear no difficulty Inserting the device into the LEFT ear no difficulty Use with telephone (placement/program/streaming) no difficulty Use of accessories (microphones/streamers) not applicable Sarah Rodriguez indicated that they were very satisfied with the devices today. Based on the above statements/comments/outcomes, it is recommended that the patient be discharged and return as needed. It is recommended that the patient have a annual Hearing Aid Check to clean/check and reprogram the devices, if needed. If change in hearing has been noted, it is recommended that the patient schedules a hearing test as well. Appointments within the first year are at no charge. Appointments following the first year are a fee for service appointment. It is recommended that a medical referral is obtain for any audiologic testing. Lorena Charles, BRIANNA-A documented in this encounter [facility] 03-16-2023 Note HNO ID: [id number] Author: Jose Angel Ware RT(Dayne) Service: ? Author Type: Technologist Type: Progress Notes Filed: 03/16/2023 1:05 PM Note Text: Radiology Service Progress Note PATIENT NAME: Sarah Rodriguez DATE OF SERVICE: March 16, 2023 TIME: 12:45 PM PATIENT IDENTITY VERIFICATION COMPLETED USING TWO (2) IDENTIFIERS: Name and Date of confirmed by patient verbally. FALL SCREENING: Has the patient had 2 falls in the last year or 1 fall with injury or currently using an Ambulatory Assistive Device (Walker, Cane, Wheelchair, Crutches, etc.)? No PATIENT GENDER DATA: Female. status: : No status: NO. PATIENT RELEVANT IMPLANT DATA REVIEWED: Not Applicable RADIOLOGY DEPARTMENT: Bone Density PERIPHERAL IV DATA: Not applicable SIGNED BY: RT Cookie(R) March 16, 2023 12:45 PM [facility] 03-16-2023 History of Presen t illness Narrative Radiology Service Progress Note PATIENT NAME: Sarah Rodriguez DATE OF SERVICE: March 16, 2023 TIME: 12:45 PM PATIENT IDENTITY VERIFICATION COMPLETED USING TWO (2) IDENTIFIERS: Name and Date of confirmed by patient verbally. FALL SCREENING: Has the patient had 2 falls in the last year or 1 fall with injury or currently using an Ambulatory Assistive Device (Walker, Cane, Wheelchair, Crutches, etc.)? No PATIENT GENDER DATA: Female. status: : No status: NO. PATIENT RELEVANT IMPLANT DATA REVIEWED: Not Applicable RADIOLOGY DEPARTMENT: Bone Density PERIPHERAL IV DATA: Not applicable SIGNED BY: RT Cookie(Dayne) March 16, 2023 12:45 PM documented in this encounter [facility] 03-03-2023 Miscellaneous Notes Phoned pt, notified of results. Pt states she still has a cough and feels fatigued. No fever at bedtime, but pt did break out in a sweat sometime through the night and was soaked with sweat when she woke up this am. Vishal Parsons LPN Can please let patient know that I received some of her test results back. Her flu/covid test was negative. Her inflammatory markers are elevated. I'm still waiting for the dante alfaro panel results. How are her symptoms? How is she feeling? documented in this encounter [facility] 03-02-2023 Note HNO ID: [id number] Author: Aylin Aguirre APRN.MADIHA Service: ? Author Type: Nurse Practitioner Type: Progress Notes Filed: 03/02/2023 1:50 PM Note Text: This is a 67 year old female who presents today with: Patient presents with: Acute Visit: URI sx for the last 8 weeks, currently on cipro; saw Kyle on 01/26 and 02/23 for the same HISTORY OF PRESENT ILLNESS: Sarah Rodriguez is a 67 year old female. Patient presents with: Acute Visit: URI sx for the last 8 weeks, currently on cipro; saw Kyle on 01/26 and 02/23 for the same Patient states she finished Augmentin on 02/09 for previous bronchitis and sinuisitis. Persistent dry cough. No fevers. She still feels tired. Rechecked last week, and started cipro. Feels like head congestion and cough are improved. However, on 02/27 she developed a sore throat and swollen glands. She developed chills and a fever last night highest reading of 102, did not take any antipyretics. Currently has a headache and stiff neck. She is handing oral secretions okay. She did a covid test initially a few weeks ago, which was negative. No n/v/d. No urinary symptoms. PAST MEDICAL HISTORY: PAST MEDICAL HISTORY Diagnosis Date Unspecified hypothyroidism PAST SURGICAL HISTORY Procedure Laterality Date BIOPSY BREAST OPEN INCISIONAL LUMPECTOMY R BREAST BENIGN DELIVERY ONLY , low cervical X3 COLONOSCOPY FLX DX W/COLLJ SPEC WHEN PFRMD 05/05/2018 Colonoscopy ESOPHAGOGASTRODUODENOSCOPY TRANSORAL DIAGNOSTIC 05/05/2018 EGD LIG/TRNSXJ FLP TUBE ABDL/VAG APPR UNI/BI Tubal ligation PAST SURGICAL HISTORY OF CYST REMOVED ON WRIST ALLERGIES Bactrim [Sulfamethoxazole-Trimethoprim], Codeine, and Sulfa (Sulfonamide Antibiotics) MEDICATIONS Current Outpatient Medications Medication Sig ciprofloxacin HCl (CIPRO) 500 mg tablet Take 1 tablet by mouth twice daily for 10 days. levothyroxine (SYNTHROID) 112 mcg tablet Take 1 tablet by mouth once daily. Take on empty stomach. For thyroid cholecalciferol, vitamin D3, (VITAMIN D3 ORAL) Take by mouth. CALCIUM ORAL Take by mouth. No current facility-administered medications for this visit. FAMILY HISTORY Problem Relation Age of Onset other (alzheimers) Mother diagnosed age early 60's -- possibly related to an MVA Coronary Artery Disease Father first [place] age early 70's Colon Cancer Father Liver Disease Father Cirrhosis other (depression) Father other (osteopenia) Sister other (atrial fibrillation) Brother Ischemic Heart Disease Brother Depression Paternal Grandmother Heart Attack Paternal Grandfather Diabetes Other none Social History Tobacco Use Smoking status: Former Packs/day: 0.25 Years: 2.00 Additional pack years: 0.00 Total pack years: 0.50 Types: Cigarettes Quit date: 10/29/2020 Years since quittin.3 Smokeless tobacco: Never Vaping Use Vaping Use: Never used Substance Use Topics Alcohol use: Yes Comment: occasionally Drug use: No EXAM: BP 128/82 Pulse 85 Temp 37.8 ?C (100 ?F) Resp 16 LMP 09/05/2005 SpO2 96% PHYSICAL EXAM: General Appearance: Well appearing, alert, in no acute distress, well-hydrated, well nourished.. Eyes: Anicteric sclera. Pupils are equally round and reactive to light. Extraocular movements are intact. . Ears: External ears normal, canals clear. Normal TMs bilaterally. Nose/Sinuses: Nares normal, septum midline, mucosa normal, no drainage or sinus tenderness. Oropharynx: Lips, mucosa, and tongue normal, teeth and gums normal, oropharynx normal. Neck: Supple, no adenopathy; thyroid symmetric, normal size, no bruits. Lymph Nodes: Positive bilateral cervical lymph node swelling with tenderness. No supraclavicular lymphadenopathy, No axillary lymphadenopathy. Throat: Tonsils +2, white exudate, erythremic Heart: RRR, no ectopy Lungs: Clear to ausculation bilaterally ASSESSMENT/PLAN: 1. Sore throat - ICD9: 462, ICD10: J02.9 (primary diagnosis) - suspect viral - Group A strep molecular testing negative - continue previously ordered cipro. - Discussed supportive care treatment with fluids, rest and analgesia. - Call back if drooling, increased temperature, symptoms of dehydration and/or still sick in one week - STREP A MOLECULAR (POC) - COVID AND INFLUENZA A/B AND RSV NAAT, ROUTINE - COVID NAAT, UPPER RESPIRATORY, ROUTINE - ROUTINE FLU A/B + RSV - [place] PANEL 2. Localized enlarged lymph nodes - ICD9: 785.6, ICD10: R59.0 - COVID AND INFLUENZA A/B AND RSV NAAT, ROUTINE - COVID NAAT, UPPER RESPIRATORY, ROUTINE - ROUTINE FLU A/B + RSV - [place] PANEL 3. Enlarged tonsils - ICD9: 474.11, ICD10: J35.1 - COVID AND INFLUENZA A/B AND RSV NAAT, ROUTINE - COVID NAAT, UPPER RESPIRATORY, ROUTINE - ROUTINE FLU A/B + RSV - CBC + DIFF - COMP METABOLIC PANEL - SED RATE WESTERGREN - C-REACTIVE PROTEIN (CRP) 4. Acute upper respiratory infection, unspecified - ICD9: 465.9, (more content not included)... [facility] 02-26-2023 Note HNO ID: [id number] Author: Radha Hollis AUD Service: ? Author Type: Fruit Bar Maker Type: Progress Notes Filed: 02/26/2023 11:40 AM Note Text: Head and Neck [facility] HEARING AID FITTING Name: Sarah Rodriguez [facility]#: [id number] Date of Service: 02/26/2023 Date of : 1955 Age: [age] year old RIGHT: Real 2 R SN: [id number] Food Production Supervisor/Dome: 2-85/micro mold LEFT: Real 2 R SN: [id number] Food Production Supervisor/Dome: 3-85/micro mold Fitting Date: 02/26/2023 Repair Warranty Expiration Date: 03/06/2026 Loss/Damage Expiration Date: 03/06/2026 Fitting Fruit Bar Maker: Lorena Charles, CCC/A This patient was seen today for a hearing aid fitting of the above devices. The devices were programmed to meet the patient's initial needs. Device counseling was provided covering the following points: 1. use of the rechargeable unit 2. device insertion and removal 3. changing wax traps (as applicable) 4. connecting smart phone (Android), if applicable, to the devices 5. demonstrating music publicist apps, if applicable Patient counseling was provided addressing the following points: 1. use/wear time 2. realistic expectations and need to return for fine-tuning 3. communication strategies to optimize hearing aid performance The purchase agreement was completed along with the Hearing Aid Fitting Checklist. The original paperwork was given to Sarah (copies were placed in the HUSSEIN file). The Hearing Aid Dispensing Appointment will be scheduled for 2-3 weeks. Sarah was taken to the front end engineer to pay for the devices in full. Total cost of the devices is $4000.00 plus the $300 nonrefundable fitting fee. Recommendations * Return within the 30 day Cazhb-ip-Sprces Period for the Hearing Aid Dispensing Appointment. * Contact your chart picker if you have any issues prior to your next appointment to address the issue in a timely manner. Lorena Charles, CCC-A Risa Bills BA, AuD Student [facility] 02-23-2023 Note HNO ID: [id number] Author: Aminta Del Rio PA-C Service: ? Author Type: Physician Clothing Examiner Type: Progress Notes Filed: 02/23/2023 12:49 PM Note Text: 67 year old female with c/o ongoing cold sx from 01/26/2023 continue sx. 01/26/2023 Prednisone 40mg daily Augmentin 875/125 started -02/10/2023 [place] worse first three days on antibiotic. Started to improve 02/06/2023 Grandson came 02/12/2023 with URI sx. Went downhill again. Feeling fatigued, coughing, from draining yellow green. No fevers. Fatigued. Taking Coracedin HISTORIES FAMILY HISTORY Problem Relation Age of Onset other (alzheimers) Mother diagnosed age early 60's -- possibly related to an MVA Coronary Artery Disease Father first [place] age early 70's Colon Cancer Father Liver Disease Father Cirrhosis other (depression) Father other (osteopenia) Sister other (atrial fibrillation) Brother Ischemic Heart Disease Brother Depression Paternal Grandmother Heart Attack Paternal Grandfather Diabetes Other none PAST MEDICAL HISTORY Diagnosis Date Unspecified hypothyroidism PAST SURGICAL HISTORY Procedure Laterality Date BIOPSY BREAST OPEN INCISIONAL LUMPECTOMY R BREAST BENIGN DELIVERY ONLY , low cervical X3 COLONOSCOPY FLX DX W/COLLJ SPEC WHEN PFRMD 05/05/2018 Colonoscopy ESOPHAGOGASTRODUODENOSCOPY TRANSORAL DIAGNOSTIC 05/05/2018 EGD LIG/TRNSXJ FLP TUBE ABDL/VAG APPR UNI/BI Tubal ligation PAST SURGICAL HISTORY OF CYST REMOVED ON WRIST Social History Tobacco Use Smoking status: Former Packs/day: 0.25 Years: 2.00 Additional pack years: 0.00 Total pack years: 0.50 Types: Cigarettes Quit date: 10/29/2020 Years since quittin.3 Smokeless tobacco: Never Vaping Use Vaping Use: Never used Substance Use Topics Alcohol use: Yes Comment: occasionally Drug use: No ACTIVE PROBLEM LIST Unspecified Hypothyroidism Osteopenia Sensorineural Hearing Loss, Bilateral Current Outpatient Medications Medication Sig Dispense Refill levothyroxine (SYNTHROID) 112 mcg tablet Take 1 tablet by mouth once daily. Take on empty stomach. For thyroid 30 tablet 11 cholecalciferol, vitamin D3, (VITAMIN D3 ORAL) Take by mouth. CALCIUM ORAL Take by mouth. No current facility-administered medications for this visit. Shingrix Vaccine(1 of 2) Never done Covid-19 Vaccine(5 - Pfizer series) due on 07/24/2022 Influenza Vaccine(1) due on 01/30/2023 Colorectal Cancer Screening due on 05/05/2023 EXAM: BP 130/72 Pulse 76 Temp 36.5 ?C (97.7 ?F) (Left Tympanic) Resp 18 Wt 60.3 kg (133 lb) LMP 09/05/2005 SpO2 97% BMI 23.56 kg/m? Pleasant adult woman in no acute distress. Alert and oriented all spheres. Normal affect and cognition. Speech normal. No deficits to learning or comprehension. Skin warm, dry, pink to lips and nailbeds. Normal turgor. Respirations regular and unlabored. Recurrent dry wheezy cough. HEENT: NCAT. No scleral icterus or conjunctival injection. TM's and ear canals are clear nicholson, normal landmarks. r. Nose and oropharynx free from injection or lesion. No active drainage. Oral membranes moist and pink. No cervical lymph nodes. Thyroid non-tender, no masses, or enlargement. Carotids pulses 2+/4+ without bruits. No JVD with HOB at 30 degrees. Chest is normal shape. Lungs are clear to all hernandez with good air exchange through out. HRRR without murmur or gallop. No lifts, heaves, or rubs. Extrem: no clubbing or cyanosis. Edema: none. Extremities are warm and pink with prompt capillary refill. ASSESSMENT/PLAN: 1. Chronic sinusitis, unspecified location - ICD9: 473.9, ICD10: J32.9 - Will begin treatment with Cipro - CIPROFLOXACIN 500 MG TABLET Educated on new medication administration, warnings and cautions, common side effects, anticipated duration or therapy, and instructions on cessation management to avoid risks if stops medication. Patient choice was discussed in shared decision making. Aminta Del Rio PA-C [facility] 02-23-2023 Instructions Aminta Del Rio PA-C - 02/23/2023 10:47 AM EDT Probiotic with 3 billion cultures or more Cipro as directed. If you should breakout in a rash, stop the medicine and call the office. This category of medication may cause tendon ruptures (3%) so use caution. It may also cause photosensitivity and may trigger heart arrhythmias (not common). Any antibiotic has the potential to cause diarrhea due to alteration in the normal bacterial saw of the gut. This can be reduced by eating yogurt with active cultures daily while on the medication. If diarrhea becomes severe (watery, large volumes or more than 3-4/day) call the office. If you do not like yogurt, ask the pharmacist for a probiotic supplement such as lactobacillus or acidophillus. Women may experience yeast vaginitis due to alteration in the vaginal saw. Symptoms include vaginal itching, irritation, and often a clumpy white discharge. If this occurs, there are several effective over the counter remedies available, including one-dose treatments. If these are unsuccessful, call the office. Antibiotics may interfer with control. If you are on oral contraceptives, use another form of protection (condoms, foams, jellies, diaphragm) throught the end of whatever pill pack you are on in 10 days. documented in this encounter [facility] 02-23-2023 History of Presen t illness Narrative 67 year old female with c/o ongoing cold sx from 01/26/2023 continue sx. 01/26/2023 Prednisone 40mg daily Augmentin 875/125 started -02/10/2023 [place] worse first three days on antibiotic. Started to improve 02/06/2023 Grandson came 02/12/2023 with URI sx. Went downhill again. Feeling fatigued, coughing, from draining yellow green. No fevers. Fatigued. Taking Cor[place]in HISTORIES FAMILY HISTORY Problem Relation Age of Onset other (alzheimers) Mother diagnosed age early 60's -- possibly related to an MVA Coronary Artery Disease Father first [place] age early 70's Colon Cancer Father Liver Disease Father Cirrhosis other (depression) Father other (osteopenia) Sister other (atrial fibrillation) Brother Ischemic Heart Disease Brother Depression Paternal Grandmother Heart Attack Paternal Grandfather Diabetes Other none PAST MEDICAL HISTORY Diagnosis Date Unspecified hypothyroidism PAST SURGICAL HISTORY Procedure Laterality Date BIOPSY BREAST OPEN INCISIONAL LUMPECTOMY R BREAST BENIGN DELIVERY ONLY , low cervical X3 COLONOSCOPY FLX DX W/COLLJ SPEC WHEN PFRMD 05/05/2018 Colonoscopy ESOPHAGOGASTRODUODENOSCOPY TRANSORAL DIAGNOSTIC 05/05/2018 EGD LIG/TRNSXJ FLP TUBE ABDL/VAG APPR UNI/BI Tubal ligation PAST SURGICAL HISTORY OF CYST REMOVED ON WRIST Social History Tobacco Use Smoking status: Former Packs/day: 0.25 Years: 2.00 Additional pack years: 0.00 Total pack years: 0.50 Types: Cigarettes Quit date: 10/29/2020 Years since quittin.3 Smokeless tobacco: Never Vaping Use Vaping Use: Never used Substance Use Topics Alcohol use: Yes Comment: occasionally Drug use: No ACTIVE PROBLEM LIST Unspecified Hypothyroidism Osteopenia Sensorineural Hearing Loss, Bilateral Current Outpatient Medications Medication Sig Dispense Refill levothyroxine (SYNTHROID) 112 mcg tablet Take 1 tablet by mouth once daily. Take on empty stomach. For thyroid 30 tablet 11 cholecalciferol, vitamin D3, (VITAMIN D3 ORAL) Take by mouth. CALCIUM ORAL Take by mouth. No current facility-administered medications for this visit. Shingrix Vaccine(1 of 2) Never done Covid-19 Vaccine(5 - Pfizer series) due on 07/24/2022 Influenza Vaccine(1) due on 01/30/2023 Colorectal Cancer Screening due on 05/05/2023 EXAM: BP 130/72 Pulse 76 Temp 36.5 C (97.7 F) (Left Tympanic) Resp 18 Wt 60.3 kg (133 lb) LMP 09/05/2005 SpO2 97% BMI 23.56 kg/m Pleasant adult woman in no acute distress. Alert and oriented all spheres. Normal affect and cognition. Speech normal. No deficits to learning or comprehension. Skin warm, dry, pink to lips and nailbeds. Normal turgor. Respirations regular and unlabored. Recurrent dry wheezy cough. HEENT: NCAT. No scleral icterus or conjunctival injection. TM's and ear canals are clear nicholson, normal landmarks. r. Nose and oropharynx free from injection or lesion. No active drainage. Oral membranes moist and pink. No cervical lymph nodes. Thyroid non-tender, no masses, or enlargement. Carotids pulses 2+/4+ without bruits. No JVD with HOB at 30 degrees. Chest is normal shape. Lungs are clear to all hernandez with good air exchange through out. HRRR without murmur or gallop. No lifts, heaves, or rubs. Extrem: no clubbing or cyanosis. Edema: none. Extremities are warm and pink with prompt capillary refill. ASSESSMENT/PLAN: 1. Chronic sinusitis, unspecified location - ICD9: 473.9, ICD10: J32.9 - Will begin treatment with Cipro - CIPROFLOXACIN 500 MG TABLET Educated on new medication administration, warnings and cautions, common side effects, anticipated duration or therapy, and instructions on cessation management to avoid risks if stops medication. Patient choice was discussed in shared decision making. Aminta Del Rio PA-C documented in this encounter [facility] 01-26-2023 Note HNO ID: [id number] Author: Aminta Del Rio PA-C Service: ? Author Type: Physician Clothing Examiner Type: Progress Notes Filed: 01/26/2023 12:11 PM Note Text: Chief Complaint Patient presents with: Cough Headache HPI Sarah Aminta Rodriguez is a 67 year old female who presents here today for an acute visit. Pt here today with c/o of a cough and headache. Symptoms started 1.5 to 2 weeks ago with a cough and intermittent headache. When starting sputum production was clear. When symptoms first started she had a fever with the highest temp being 100.2. Fever free yesterday. Sputum production started to change color on Thursday, changing to a dark andrade, green and yellow type color. Yesterday started to feel nauseas. Just concerned there's nothing else going on at this time. Has tried Robitussin DM, with no significant improvement. Trying to push clear fluids. Past medical history, appointments, medications, allergies reviewed. Reviewed and agree with nursing note above. Aminta Del Rio PA-C Check home Covid test, negative. Feels she is getting worse. Initial clear sputum. Now thick yellow green mucus. No current fever. No current wheezing, though notes a little SOB. Achy, headache. No N/V/D Nothing OTC. Previous Medical History PAST MEDICAL HISTORY Diagnosis Date Unspecified hypothyroidism Previous Surgical History PAST SURGICAL HISTORY Procedure Laterality Date BIOPSY BREAST OPEN INCISIONAL LUMPECTOMY R BREAST BENIGN DELIVERY ONLY , low cervical X3 COLONOSCOPY FLX DX W/COLLJ SPEC WHEN PFRMD 05/05/2018 Colonoscopy ESOPHAGOGASTRODUODENOSCOPY TRANSORAL DIAGNOSTIC 05/05/2018 EGD LIG/TRNSXJ FLP TUBE ABDL/VAG APPR UNI/BI Tubal ligation PAST SURGICAL HISTORY OF CYST REMOVED ON WRIST Family History FAMILY HISTORY Problem Relation Age of Onset other (alzheimers) Mother diagnosed age early 60's -- possibly related to an MVA Coronary Artery Disease Father first NH age early 70's Colon Cancer Father Liver Disease Father Cirrhosis other (depression) Father other (osteopenia) Sister other (atrial fibrillation) Brother Ischemic Heart Disease Brother Depression Paternal Grandmother Heart Attack Paternal Grandfather Diabetes Other none Patient Allergies ALLERGIES Allergen Reactions Bactrim [Sulfametho* Codeine GI Upset Sulfa (Sulfonamide * GI Upset Current Medications Current Outpatient Medications on File Prior to Visit Medication Sig levothyroxine (SYNTHROID) 112 mcg tablet Take 1 tablet by mouth once daily. Take on empty stomach. For thyroid cholecalciferol, vitamin D3, (VITAMIN D3 ORAL) Take by mouth. CALCIUM ORAL Take by mouth. No current facility-administered medications on file prior to visit. Social History Social History Tobacco Use Smoking status: Former Packs/day: 0.25 Years: 2.00 Additional pack years: 0.00 Total pack years: 0.50 Types: Cigarettes Quit date: 10/29/2020 Years since quittin.2 Smokeless tobacco: Never Vaping Use Vaping Use: Never used Substance Use Topics Alcohol use: Yes Comment: occasionally Drug use: No Health Maintenance List SHINGRIX VACCINE(1 of 2) Never done COVID-19 VACCINE(5 - Pfizer series) due on 07/24/2022 INFLUENZA(1) due on 01/30/2023 COLORECTAL CANCER SCREENING due on 05/05/2023 MAMMOGRAM due on 11/22/2023 ANNUAL PCP TEAM CHRONIC DISEASE VISIT due on 12/06/2023 DIABETES SCREEN due on 12/16/2025 LIPID SCREEN due on 12/17/2027 DTAP,TDAP,TD(3 - Td or Tdap) due on 11/22/2029 BONE DENSITY Completed ADVANCE DIRECTIVE DISCUSSION Completed DEPRESSION ASSESSMENT Completed HEPATITIS C SCREENING Completed PNEUMOCOCCAL: 65+ Completed EXAM: OBJECTIVE: BP 138/84 (BP Site: Left Arm, BP Position: Sitting, BP Cuff Size: Regular Adult) Pulse 76 Temp 36.7 ?C (98.1 ?F) (Tympanic) Resp 18 Wt 61.4 kg (135 lb 6.4 oz) LMP 09/05/2005 SpO2 94% BMI 23.99 kg/m? General appearance: pleasant adult woman of average build with nasal congestion and cough. Alert and oriented in all spheres. Respirations: regular, unlabored, no retractions Color: pink to lips and nailbeds, normal turgor Skin: warm, dry, no unusual rashes or lesions Head: Normocephalic Eyes: sclerae and conjunctivae without injection or exudate, PERRLA, EOMI, corneal light reflex symmetric bilaterally Ears: TM's are clear/ andrade bilaterally with normal landmarks, no swelling or deformity ear canal or external ear Nose/Sinuses: Nose patent. No turbinate swelling. Active exudate: clear. Maxillary and frontal sinuses nontender to percussion. Oropharynx: oral membranes are moist. Lips, mucosa, and tongue free from lesions. Gums without inflammation. Posterior pharynx no injection, no exudate, no tonsillar hypertrophy. Neck: Neck supple, No anterior cervical lymphadenopathy; thyroid without mass or tenderness. Chest: normally shaped, equal expansion with breaths. L (more content not included)... [facility] 01-26-2023 Instructions Aminta Del Rio PA-C - 01/26/2023 9:17 AM EDT Facts About the Common Cold and Upper Respiratory Infection: Common symptoms include: sore throat, tender lymph nodes, low grade fever 99-101F for first few days, watery nasal drip that progresses to thick yellow-green mucus on blowing and on coughing, facial/sinus pressure, headache, chest tightness and tiredness/ fatigue. Usually they peak with the worst symptoms about 5-7 days and take another 5-7 days to clear, in other words 10-14 days. Occasionally there will be a persistent nagging cough or some residual minor nasal congestion up to several weeks. Viral infections are not susceptible to antibiotics. Due to the critical issues with global antibiotic resistance, we do not prescribe antibiotics if we suspect viral sources. Antibiotics can cause serious complications and therefore should be reserved for only serious infections. Get plenty of rest. Force fluids daily with water and juices. Nasal saline spray may help to keep nose open and moist: 2-3 squirts each side every few hours. This also help to rinse out virus and bacteria causing infection. Cool mist humidifier in room during sleep. May use OTC Tylenol or Ibuprofen as direct for discomfort. For sore throat, warm salt water gargles, Chlorseptic spray, lozenges or other OTC sore throat remedies may help. Decongestants such as plain Sudafed or with expectorant such as Mucinex D may help with nasal stuffiness or facial and sinus pressure. Generics are fine. These are over the counter but require an adult signature. Oxymetolazine nasal decongestants (Afrin, Dristan, Darwin's) may also help (in place of oral decongestants) but should not be used longer than 48-72 hours due to potential rebound congestion. OTC antihistamines such Benadryl (make cause drowsiness) or Zyrtec/ Clariten/ Barbara (non-drowsy) may help watery nasal drainage though they are generally not recommended because they dry mucus and make it sticky. The flow of mucus is important to help your body rid the virus. If cough keeps you awake at night, try OTC remedies first, such as Nyquil, Delsym, Darwin's 44 or Mucinex DM. If this doesn't help you sleep, call the office for a prescription. Be careful if you are combining cough and cold medications that you aren't doubling the medicines. If you aren't sure: ask the pharmacist for help. Cough or sneeze into your sleeve to prevent spread of infected secretions. Wash your hands frequently. Try not to cough or sneeze on surfaces others might touch. Prednisone as directed Amoxicillin/ Clavulonate (Augmentin) as directed per prescription. Finish all doses. Use only if fever or symptoms significantly worsening. If you should breakout in a rash, stop the medicine and call the office. Any antibiotic has the potential to cause diarrhea due to alteration in the normal bacterial saw of the gut. This can be reduced by eating yogurt with active cultures daily while on the medication. If diarrhea becomes severe (watery, large volumes or more than 3-4/day) call the office. Women may experience yeast vaginitis due to alteration in the vaginal saw. Symptoms include vaginal itching, irritation, and often a clumpy white discharge. If this occurs, there are several effective over the counter remedies available, including one-dose treatments. If these are unsuccessful, call the office. Antibiotics may interfer with control. If you are on oral contraceptives, use another form of protection (condoms, foams, jellies, diaphragm) throught the end of whatever pill pack you are on in 10 days. If symptoms fail to improve in 5-7 days, fever > 100.5F, general worsening, or other concerning symptoms, return to [facility] or Alessio Lewis MD. documented in this encounter [facility] 01-26-2023 History of Presen t illness Narrative Chief Complaint Patient presents with: Cough Headache HPI Sarah Aminta Rodriguez is a 67 year old female who presents here today for an acute visit. Pt here today with c/o of a cough and headache. Symptoms started 1.5 to 2 weeks ago with a cough and intermittent headache. When starting sputum production was clear. When symptoms first started she had a fever with the highest temp being 100.2. Fever free yesterday. Sputum production started to change color on Thursday, changing to a dark andrade, green and yellow type color. Yesterday started to feel nauseas. Just concerned there's nothing else going on at this time. Has tried Robitussin DM, with no significant improvement. Trying to push clear fluids. Past medical history, appointments, medications, allergies reviewed. Reviewed and agree with nursing note above. mAinta Del Rio PA-C Check home Covid test, negative. Feels she is getting worse. Initial clear sputum. Now thick yellow green mucus. No current fever. No current wheezing, though notes a little SOB. Achy, headache. No N/V/D Nothing OTC. Previous Medical History PAST MEDICAL HISTORY Diagnosis Date Unspecified hypothyroidism Previous Surgical History PAST SURGICAL HISTORY Procedure Laterality Date BIOPSY BREAST OPEN INCISIONAL LUMPECTOMY R BREAST BENIGN DELIVERY ONLY , low cervical X3 COLONOSCOPY FLX DX W/COLLJ SPEC WHEN PFRMD 05/05/2018 Colonoscopy ESOPHAGOGASTRODUODENOSCOPY TRANSORAL DIAGNOSTIC 05/05/2018 EGD LIG/TRNSXJ FLP TUBE ABDL/VAG APPR UNI/BI Tubal ligation PAST SURGICAL HISTORY OF CYST REMOVED ON WRIST Family History FAMILY HISTORY Problem Relation Age of Onset other (alzheimers) Mother diagnosed age early 60's -- possibly related to an MVA Coronary Artery Disease Father first [place] age early 70's Colon Cancer Father Liver Disease Father Cirrhosis other (depression) Father other (osteopenia) Sister other (atrial fibrillation) Brother Ischemic Heart Disease Brother Depression Paternal Grandmother Heart Attack Paternal Grandfather Diabetes Other none Patient Allergies ALLERGIES Allergen Reactions Bactrim [Sulfametho* Codeine GI Upset Sulfa (Sulfonamide * GI Upset Current Medications Current Outpatient Medications on File Prior to Visit Medication Sig levothyroxine (SYNTHROID) 112 mcg tablet Take 1 tablet by mouth once daily. Take on empty stomach. For thyroid cholecalciferol, vitamin D3, (VITAMIN D3 ORAL) Take by mouth. CALCIUM ORAL Take by mouth. No current facility-administered medications on file prior to visit. Social History Social History Tobacco Use Smoking status: Former Packs/day: 0.25 Years: 2.00 Additional pack years: 0.00 Total pack years: 0.50 Types: Cigarettes Quit date: 10/29/2020 Years since quittin.2 Smokeless tobacco: Never Vaping Use Vaping Use: Never used Substance Use Topics Alcohol use: Yes Comment: occasionally Drug use: No Health Maintenance List SHINGRIX VACCINE(1 of 2) Never done COVID-19 VACCINE(5 - Pfizer series) due on 07/24/2022 INFLUENZA(1) due on 01/30/2023 COLORECTAL CANCER SCREENING due on 05/05/2023 MAMMOGRAM due on 11/22/2023 ANNUAL PCP TEAM CHRONIC DISEASE VISIT due on 12/06/2023 DIABETES SCREEN due on 12/16/2025 LIPID SCREEN due on 12/17/2027 DTAP,TDAP,TD(3 - Td or Tdap) due on 11/22/2029 BONE DENSITY Completed ADVANCE DIRECTIVE DISCUSSION Completed DEPRESSION ASSESSMENT Completed HEPATITIS C SCREENING Completed PNEUMOCOCCAL: 65+ Completed EXAM: OBJECTIVE: BP 138/84 (BP Site: Left Arm, BP Position: Sitting, BP Cuff Size: Regular Adult) Pulse 76 Temp 36.7 C (98.1 F) (Tympanic) Resp 18 Wt 61.4 kg (135 lb 6.4 oz) LMP 09/05/2005 SpO2 94% BMI 23.99 kg/m General appearance: pleasant adult woman of average build with nasal congestion and cough. Alert and oriented in all spheres. Respirations: regular, unlabored, no retractions Color: pink to lips and nailbeds, normal turgor Skin: warm, dry, no unusual rashes or lesions Head: Normocephalic Eyes: sclerae and conjunctivae without injection or exudate, PERRLA, EOMI, corneal light reflex symmetric bilaterally Ears: TM's are clear/ andrade bilaterally with normal landmarks, no swelling or deformity ear canal or external ear Nose/Sinuses: Nose patent. No turbinate swelling. Active exudate: clear. Maxillary and frontal sinuses nontender to percussion. Oropharynx: oral membranes are moist. Lips, mucosa, and tongue free from lesions. Gums without inflammation. Posterior pharynx no injection, no exudate, no tonsillar hypertrophy. Neck: Neck supple, No anterior cervical lymphadenopathy; thyroid without mass or tenderness. Chest: normally shaped, equal expansion with breaths. Lungs: Lungs clear to auscultation and percussion. No crackles or wheezes. Heart: RRR without murmur, gallop, or rubs. S1 and S2 normal. ASSESSMENT/PLAN: 1. Viral bronchitis - ICD9: 466.0, ICD10: J20.8 Discussed URI, viral sinusitis and bronchitis Recommend hold off antibiotic unless fever or worsening. Educated on use sand indication for antibiotics, potential side effects, warnings. Prednisone will help to open chest, educated on new med Maintain precautions for spread through covering cough/ sneeze, isolating from at risk individuals - PREDNISONE 20 MG TABLET - AMOXICILLIN 875 MG-POTASSIUM CLAVULANATE 125 MG TABLET F/u prn if not improving, fever, worse Aminta Del Rio PA-C documented in this encounter [facility] 01-21-2023 Note HNO ID: [id number] Author: Radha Hollis AUD Service: ? Author Type: Fruit Bar Maker Type: Progress Notes Filed: 01/21/2023 11:55 AM Note Text: HEARING NEEDS ASSESSMENT Name: Sarah Rodriguez CC#: [id number] Date of Service: 01/21/2023 Date of : 1955 Age: [age] year old This patient was seen today for a hearing needs assessment. Insurance benefit was verified and found that they do not have insurance coverage. Sarah Rodriguez is an established patient who is still wearing her Eqoq V devices from 2009. She had a recent hearing test at [facility] and a former 4th year AuD student performed the test. They also discussed hearing aids and Sarah decided to come here because our pricing is a bit lower. Based on a discussion about the various amplification options with the patient, including the style of hearing aid, the level of technology, and the use of binaural versus monaural devices, it was agreed that the patient would be fit with [id number]-zlp afhtlpmg-ca-omn-ear (BTE RITE), Level 3 technology in both ears. Ear mold impressions were taken of both ears for custom ear pieces. Her canals were clear before and after. It is also understood that maximum benefit will be achieved from the hearing aid(s) with frequent use and proper fitting and programming. FINANCIAL COMPONENT It is understood that full payment will be required at the fitting appointment. NOTE: Payment at the time of the Hearing Aid Fitting includes the cost of the device, the fitting appointment as well as all follow-up appointments related to the hearing aids for ONE YEAR from the fitting date. All other appointments - non hearing aid related such as audiometric testing, ENT appointments, etc are NOT covered under the this payment. All future appointments past the ONE YEAR from fitting date will be a [id number]. If there is an insurance benefit, the cost of the devices along with the fitting fee will be submitted to insurance. If it has been determined that there is a limit to the insurance coverage, Sarah will be financially responsible at the time of the fitting for the balance over the insurance benefit limit. Sarah was taken to the Financial Counselors to cover today's appointment fee of $100. Recommendations * Return for the Hearing Aid Fitting with your chart picker, Lorena Charles, CCC/A. * Devices to be ordered: Oticon Real 2 R with micro molds. Lorena Charles, CCC-A [facility] 01-21-2023 History of Presen t illness Narrative HEARING NEEDS ASSESSMENT Name: Sarah Rodriguez [facility]#: [id number] Date of Service: 01/21/2023 Date of : 1955 Age: [age] year old This patient was seen today for a hearing needs assessment. Insurance benefit was verified and found that they do not have insurance coverage. Sarah Rodriguez is an established patient who is still wearing her Eqoq V devices from 2009. She had a recent hearing test at [facility] and a former 4th year AuD student performed the test. They also discussed hearing aids and Sarah decided to come here because our pricing is a bit lower. Based on a discussion about the various amplification options with the patient, including the style of hearing aid, the level of technology, and the use of binaural versus monaural devices, it was agreed that the patient would be fit with rqqytp-lzf-dkk jkxxiecm-fs-kcd-ear (BTE RITE), Level 3 technology in both ears. Ear mold impressions were taken of both ears for custom ear pieces. Her canals were clear before and after. It is also understood that maximum benefit will be achieved from the hearing aid(s) with frequent use and proper fitting and programming. FINANCIAL COMPONENT It is understood that full payment will be required at the fitting appointment. NOTE: Payment at the time of the Hearing Aid Fitting includes the cost of the device, the fitting appointment as well as all follow-up appointments related to the hearing aids for ONE YEAR from the fitting date. All other appointments - non hearing aid related such as audiometric testing, ENT appointments, etc are NOT covered under the this payment. All future appointments past the ONE YEAR from fitting date will be a [id number]. If there is an insurance benefit, the cost of the devices along with the fitting fee will be submitted to insurance. If it has been determined that there is a limit to the insurance coverage, Sarah will be financially responsible at the time of the fitting for the balance over the insurance benefit limit. Sarah was taken to the Financial Counselors to cover today's appointment fee of $100. Recommendations * Return for the Hearing Aid Fitting with your chart picker, Lorena Charles, BRIANNA/A. * Devices to be ordered: Oticon Real 2 R with micro molds. Lorena Charles, BRIANNA-A documented in this encounter [facility] 12-29-2022 Note HNO ID: [id number] Author: Yandy Shen RT(R) Service: ? Author Type: General Studies Program Chair Type: Progress Notes Filed: 12/29/2022 9:45 AM Note Text: Radiology Service Progress Note PATIENT NAME: Sarah Rodriguez DATE OF SERVICE: December 29, 2022 TIME: 9:45 AM PATIENT IDENTITY VERIFICATION COMPLETED USING TWO (2) IDENTIFIERS: Name and Date of confirmed by patient verbally. FALL SCREENING: Has the patient had 2 falls in the last year or 1 fall with injury or currently using an Ambulatory Assistive Device (Walker, Cane, Wheelchair, Crutches, etc.)? No PATIENT GENDER DATA: Female. status: : No status: NO. PATIENT RELEVANT IMPLANT DATA REVIEWED: Yes RADIOLOGY DEPARTMENT: CT; Exam(s) Completed: Neck PERIPHERAL IV DATA: Not applicable SIGNED BY: RT Ashly(R) December 29, 2022 9:45 AM [facility] 12-29-2022 History of Presen t illness Narrative Radiology Service Progress Note PATIENT NAME: Sarah Rodriguez DATE OF SERVICE: December 29, 2022 TIME: 9:45 AM PATIENT IDENTITY VERIFICATION COMPLETED USING TWO (2) IDENTIFIERS: Name and Date of confirmed by patient verbally. FALL SCREENING: Has the patient had 2 falls in the last year or 1 fall with injury or currently using an Ambulatory Assistive Device (Walker, Cane, Wheelchair, Crutches, etc.)? No PATIENT GENDER DATA: Female. status: : No status: NO. PATIENT RELEVANT IMPLANT DATA REVIEWED: Yes RADIOLOGY DEPARTMENT: CT; Exam(s) Completed: Neck PERIPHERAL IV DATA: Not applicable SIGNED BY: RT Ashly(R) December 29, 2022 9:45 AM documented in this encounter [facility] 12-16-2022 Note HNO ID: [id number] Author: Skylar Staton RT([place]) Service: Radiology Author Type: Technologist Type: Progress Notes Filed: 12/16/2022 3:17 PM Note Text: Radiology Service Progress Note PATIENT NAME: Sarah Rodriguez DATE OF SERVICE: December 16, 2022 TIME: 3:16 PM PATIENT IDENTITY VERIFICATION COMPLETED USING TWO (2) IDENTIFIERS: Name and Date of confirmed by patient verbally. FALL SCREENING: Has the patient had 2 falls in the last year or 1 fall with injury or currently using an Ambulatory Assistive Device (Walker, Cane, Wheelchair, Crutches, etc.)? No PATIENT GENDER DATA: Female. status: : No status: N/A PATIENT RELEVANT IMPLANT DATA REVIEWED: Not Applicable RADIOLOGY DEPARTMENT: Ultrasound PERIPHERAL IV DATA: Not applicable SIGNED BY: Skylar Staton Rdms December 16, 2022 3:16 PM [facility] 12-16-2022 History of Presen t illness Narrative Radiology Service Progress Note PATIENT NAME: Sarah Rodriguez DATE OF SERVICE: December 16, 2022 TIME: 3:16 PM PATIENT IDENTITY VERIFICATION COMPLETED USING TWO (2) IDENTIFIERS: Name and Date of confirmed by patient verbally. FALL SCREENING: Has the patient had 2 falls in the last year or 1 fall with injury or currently using an Ambulatory Assistive Device (Walker, Cane, Wheelchair, Crutches, etc.)? No PATIENT GENDER DATA: Female. status: : No status: N/A PATIENT RELEVANT IMPLANT DATA REVIEWED: Not Applicable RADIOLOGY DEPARTMENT: Ultrasound PERIPHERAL IV DATA: Not applicable SIGNED BY: Skylar Staton Rdms December 16, 2022 3:16 PM documented in this encounter [facility] 12-05-2022 Note HNO ID: [id number] Author: Aminta Del Rio PA-C Service: ? Author Type: Physician Clothing Examiner Type: Progress Notes Filed: 12/05/2022 1:13 PM Note Text: 67 year old female with c/o Sarah Rodriguez is a 67 year old female here for a Medicare Subsequent Annual Wellness Visit Health Risk Assessment In general, health is: Very good Concerns with balance:Not at all Concerns with teeth or dentures:Not at all Concerns with sexual function:Not at all [place] anxious, stressed, angry, irritable, lonely, isolated, or had thoughts of hurting themself: Not at all Has little interest or pleasure in doing things: Not at all Bothered by feeling down, depressed, or hopeless: Not at all Needs help with grocery shopping, cooking, housework, bathing, grooming, dressing, eating, sitting or standing, walking, using the toilet, handling finances, taking medications, using the telephone, or driving: No Following safety precautions in the home environment and vehicle: removed throw rugs from floors, installed grab bars (NO) in the bathroom, handrails in stairwells, having adequate lighting, wearing seatbelt at all times?: Yes Smokes cigarettes, vapes, or chew tobacco: No Eats healthy foods including fruits, vegetables, whole grains, and fiber-rich foods: More than half the days Number of days per week engages in exercise: 6 days Average alcohol consumption: Monthly or less Current Providers Specialists: I have reviewed specialist-related care of the patient in the medical record. Medical/Family history review Reviewed and updated problem list, medical/surgical/family/social history, medications, and allergies. Opioid use review Patient is not currently using opioids. Depression screening Depression Screening PHQ-2 Score 10/29/2021 0 Depression screening tool completed and reviewed. Based on score and interview, patient is not at risk for depression. Screening tool discussed with patient, and I recommended no further intervention at this time. Cognitive screening Mini Cog Score: Score: 5 Cognitive screening reviewed and no further action needed (score 3-5) Functional Observation Was the patient's timed Up AND Go test unsteady or ? 12 seconds? No Advance Care Planning End of Life planning discussed, including patient's advanced directive wishes: Yes Measurements LMP 09/05/2005 Visual acuity (required for Welcome to Medicare): Nursing Notes: Asya Cruz Ma 12/05/2022 8:52 AM Signed VISUAL ACUITY: Today's exam: Vision Correction? Glasses: RIGHT EYE: 20/30 LEFT EYE: 20/ 30 BOTH EYES: 20/25 Hearing Evaluation: wears hearing aids Additional Concerns The following concerns were also discussed with the patient: Hypothyroidism, acquired Current medication: Levothyroxine 112 mcg daily 1 hour AC Taking as directed on an empty stomach? Yes. Thyroid pain: No. Mass effect: No. Change in energy level/ fatigue? No. Sleep disturbance ?No. Probably 6-9h, mostly 8h Temperature Intolerance: cold No, hot a little buit of hot flashes recently. In females, menstrual cycle issues? Climacteric, No vaginal bleeding or discharge. Change in bowel habits? No. Usually one, formed, brown. No rectal bleeding, black or tarry stools. 2018 colonscopy WNL Constipation? No. If yes: Diarrhea? No. If yes: Weight changes?No. Memory issues: good. Diaphoresis: No. Numbness, tingling, oss of sensation: none Radiological imaging with contrast dyes within the last 3 months? No. History of radiation exposure to head or neck area? No. Change in hair or skin? No. If yes: Other symptoms: Last 2 Encounter Wt Readings: Date: Wt: 11/22/2022 61.2 kg (135 lb) 08/06/2022 59.9 kg (132 lb) Last thyroid labs: TSH Date Value 10/03/2021 1.950 mIU/L 03/02/2020 1.460 uU/mL 11/07/2019 0.843 uU/mL ) Elevated liver enzymes Component Latest Ref Rng AND Units 12/17/2016 10/03/2021 10/23/2021 Protein, Total 6.3 - 8.0 g/dL 7.8 7.3 6.9 Albumin 3.9 - 4.9 g/dL 4.6 4.3 4.1 Calcium 8.5 - 10.2 mg/dL 9.9 10.2 Bilirubin, Total 0.2 - 1.3 mg/dL 0.3 0.4 0.3 Alkaline Phosphatase 34 - 123 U/L 67 67 65 AST 13 - 35 U/L 43 (H) 40 (H) 48 (H) Glucose 74 - 99 mg/dL 88 110 (H) BUN 7 - 21 mg/dL 21 17 Creatinine 0.58 - 0.96 mg/dL 0.74 0.66 Sodium 136 - 144 mmol/L 142 139 Potassium 3.7 - 5.1 mmol/L 4.1 4.0 Chloride 97 - 105 mmol/L 103 103 CO2 22 - 30 mmol/L 23 28 Anion Gap 9 - 18 mmol/L 16 8 (L) ALT 7 - 38 U/L 53 (H) 55 (H) 54 (H) eGFR- >60 eGFR-All Other Races . >60 eGFR >=60 mL/min/1.73mA? 96 Bilirubin, Conjug <0.2 mg/dL <0.2 HCV RNA by PCR HCV RNA not detected by PCR. HCV RNA not detected by PCR. Hep B Surface Ag Negative Negative Hep A Ab, IgM Negative Negative Hep B Core Ab, IgM Negative Negative 11/04/2021 US RUQ: Coarsened hepatic echotexture with slight heterogeneity which can be seen with fatty infiltration. Spleen mildly prominent measuring 12.4 cm in sagittal lengt (more content not included)... [facility] 11-24-2022 Miscellaneous Notes November 24, 2022 PID: [id number] Sarah Rodriguez [id number] [id number] Dear Ms. Rodriguez, We are pleased to inform you that the results of your recent breast imaging exam on 11/21/2022 are normal. Your mammogram demonstrates that you have dense breast tissue, which could hide abnormalities. Dense breast tissue, in and of itself, is a relatively common condition. Therefore, this information is not provided to cause undue concern; rather, it is to raise your awareness and promote discussion with your health care provider regarding the presence of dense breast tissue in addition to other risk factors. Early detection of cancer is very important. We also understand recommendations regarding breast cancer screening are controversial. Please discuss with your primary care provider which strategy is best for you and whether a mammogram is right for you. Your imaging studies and report will be kept on file at [facility] as part of your permanent medical record and are available for your continuing care. Thank you for allowing us to help in meeting your health care needs. Sincerely, Dr. Jernigan Interpreting Radiologist [facility] (Normal over 40) documented in this encounter [facility] 11-22-2022 Note HNO ID: [id number] Author: JYOTI Gore Service: ? Author Type: Physician Clothing Examiner Type: Progress Notes Filed: 11/22/2022 9:22 AM Note Text: This note was created using NoteWriter. Subjective Sarah Rodriguez is a 67 year old female. HPI 67-year-old female presents for right eye redness and discharge starting this morning. Patient states she was around her grandchild who has pinkeye. She started getting symptoms this morning. She denies any pain in the eye. She does wear glasses, no contacts. No vision changes. No fevers, cough, URI symptoms. No other complaints. PAST MEDICAL HISTORY Diagnosis Date Unspecified hypothyroidism PAST SURGICAL HISTORY Procedure Laterality Date BIOPSY BREAST OPEN INCISIONAL LUMPECTOMY R BREAST BENIGN DELIVERY ONLY , low cervical X3 COLONOSCOPY FLX DX W/COLLJ SPEC WHEN PFRMD 05/05/2018 Colonoscopy ESOPHAGOGASTRODUODENOSCOPY TRANSORAL DIAGNOSTIC 05/05/2018 EGD LIG/TRNSXJ FLP TUBE ABDL/VAG APPR UNI/BI Tubal ligation PAST SURGICAL HISTORY OF CYST REMOVED ON WRIST ALLERGIES Bactrim [Sulfamethoxazole-Trimethoprim], Codeine, and Sulfa (Sulfonamide Antibiotics) MEDICATIONS levothyroxine (SYNTHROID) 112 mcg tablet Take 1 tablet by mouth once daily. Take on empty stomach. For thyroid cholecalciferol, vitamin D3, (VITAMIN D3 ORAL) Take by mouth. CALCIUM ORAL Take by mouth. erythromycin (ROMYCIN) 5 mg/gram (0.5 %) ophthalmic ointment Use 1 application in the right eye four times daily for 7 days. Promethazine-DM (PHENERGAN-DM) 6.25-15 mg/5 mL syrup Take 5 mL by mouth four times daily as needed. (Patient not taking: Reported on 11/22/2022) FAMILY HISTORY Problem Relation Age of Onset other (alzheimers) Mother diagnosed age early 60's -- possibly related to an MVA Coronary Artery Disease Father first [place] age early 70's Colon Cancer Father Liver Disease Father Cirrhosis other (depression) Father Colon Cancer Other none Diabetes Other none Social History Tobacco Use Smoking status: Former Types: Cigarettes Quit date: 10/29/2020 Years since quittin.0 Smokeless tobacco: Never Tobacco comments: quit 8 years ago Vaping Use Vaping Use: Never used Substance Use Topics Alcohol use: Yes Comment: occasionally Drug use: No Review of Systems Constitutional: Negative for chills and fever. HENT: Negative for congestion, ear pain and sore throat. Eyes: Positive for discharge and redness. Negative for photophobia, pain, itching and visual disturbance. Respiratory: Negative for cough and shortness of breath. Cardiovascular: Negative for chest pain. Gastrointestinal: Negative for diarrhea and vomiting. Objective BP 128/82 Pulse 62 Temp 36.6 ?C (97.9 ?F) Resp 21 Wt 61.2 kg (135 lb) LMP 09/05/2005 SpO2 99% BMI 23.91 kg/m? Physical Exam Vitals and nursing note reviewed. Constitutional: General: She is not in acute distress. Appearance: Normal appearance. She is not toxic-appearing. HENT: Nose: Nose normal. Mouth/Throat: Mouth: Mucous membranes are moist. Pharynx: No oropharyngeal exudate or posterior oropharyngeal erythema. Eyes: General: Vision grossly intact. Right eye: Discharge present. Extraocular Movements: Extraocular movements intact. Conjunctiva/sclera: Right eye: Right conjunctiva is injected. Cardiovascular: Rate and Rhythm: Normal rate and regular rhythm. Pulmonary: Effort: Pulmonary effort is normal. Breath sounds: Normal breath sounds. Neurological: Mental Status: She is alert. Assessment and Plan ASSESSMENT/PLAN: 1. Bacterial conjunctivitis - ICD9: 372.39, 041.9, ICD10: H10.9 - see medication orders- erythromycin ointment - course and contagiousness issues discussed, including hand washing. - Instructed to call if high fever, development of periorbital redness or swelling, eye pain, visual changes, concerns or if symptoms persist. Diagnosis and treatment plan were discussed and questions were answered to the patient's satisfaction. Pt acknowledged understanding of concepts and follow up plan. Specific signs and symptoms that would indicate the need for higher level of care were discussed in detail warranting prompt ER evaluation. JYOTI Gore [facility] 11-22-2022 History of Presen t illness Narrative This note was created using FUJIAN HAIYUANriter. Subjective Sarah Rodriguez is a 67 year old female. HPI 67-year-old female presents for right eye redness and discharge starting this morning. Patient states she was around her grandchild who has pinkeye. She started getting symptoms this morning. She denies any pain in the eye. She does wear glasses, no contacts. No vision changes. No fevers, cough, URI symptoms. No other complaints. PAST MEDICAL HISTORY Diagnosis Date Unspecified hypothyroidism PAST SURGICAL HISTORY Procedure Laterality Date BIOPSY BREAST OPEN INCISIONAL LUMPECTOMY R BREAST BENIGN DELIVERY ONLY , low cervical X3 COLONOSCOPY FLX DX W/COLLJ SPEC WHEN PFRMD 05/05/2018 Colonoscopy ESOPHAGOGASTRODUODENOSCOPY TRANSORAL DIAGNOSTIC 05/05/2018 EGD LIG/TRNSXJ FLP TUBE ABDL/VAG APPR UNI/BI Tubal ligation PAST SURGICAL HISTORY OF CYST REMOVED ON WRIST ALLERGIES Bactrim [Sulfamethoxazole-Trimethoprim], Codeine, and Sulfa (Sulfonamide Antibiotics) MEDICATIONS levothyroxine (SYNTHROID) 112 mcg tablet Take 1 tablet by mouth once daily. Take on empty stomach. For thyroid cholecalciferol, vitamin D3, (VITAMIN D3 ORAL) Take by mouth. CALCIUM ORAL Take by mouth. erythromycin (ROMYCIN) 5 mg/gram (0.5 %) ophthalmic ointment Use 1 application in the right eye four times daily for 7 days. Promethazine-DM (PHENERGAN-DM) 6.25-15 mg/5 mL syrup Take 5 mL by mouth four times daily as needed. (Patient not taking: Reported on 11/22/2022) FAMILY HISTORY Problem Relation Age of Onset other (alzheimers) Mother diagnosed age early 60's -- possibly related to an MVA Coronary Artery Disease Father first [place] age early 70's Colon Cancer Father Liver Disease Father Cirrhosis other (depression) Father Colon Cancer Other none Diabetes Other none Social History Tobacco Use Smoking status: Former Types: Cigarettes Quit date: 10/29/2020 Years since quittin.0 Smokeless tobacco: Never Tobacco comments: quit 8 years ago Vaping Use Vaping Use: Never used Substance Use Topics Alcohol use: Yes Comment: occasionally Drug use: No Review of Systems Constitutional: Negative for chills and fever. HENT: Negative for congestion, ear pain and sore throat. Eyes: Positive for discharge and redness. Negative for photophobia, pain, itching and visual disturbance. Respiratory: Negative for cough and shortness of breath. Cardiovascular: Negative for chest pain. Gastrointestinal: Negative for diarrhea and vomiting. Objective BP 128/82 Pulse 62 Temp 36.6 C (97.9 F) Resp 21 Wt 61.2 kg (135 lb) LMP 09/05/2005 SpO2 99% BMI 23.91 kg/m Physical Exam Vitals and nursing note reviewed. Constitutional: General: She is not in acute distress. Appearance: Normal appearance. She is not toxic-appearing. HENT: Nose: Nose normal. Mouth/Throat: Mouth: Mucous membranes are moist. Pharynx: No oropharyngeal exudate or posterior oropharyngeal erythema. Eyes: General: Vision grossly intact. Right eye: Discharge present. Extraocular Movements: Extraocular movements intact. Conjunctiva/sclera: Right eye: Right conjunctiva is injected. Cardiovascular: Rate and Rhythm: Normal rate and regular rhythm. Pulmonary: Effort: Pulmonary effort is normal. Breath sounds: Normal breath sounds. Neurological: Mental Status: She is alert. Assessment and Plan ASSESSMENT/PLAN: 1. Bacterial conjunctivitis - ICD9: 372.39, 041.9, ICD10: H10.9 - see medication orders- erythromycin ointment - course and contagiousness issues discussed, including hand washing. - Instructed to call if high fever, development of periorbital redness or swelling, eye pain, visual changes, concerns or if symptoms persist. Diagnosis and treatment plan were discussed and questions were answered to the patient's satisfaction. Pt acknowledged understanding of concepts and follow up plan. Specific signs and symptoms that would indicate the need for higher level of care were discussed in detail warranting prompt ER evaluation. JYOTI Gore documented in this encounter [facility] 11-21-2022 Note HNO ID: [id number] Author: RT Alphonso(R) Service: ? Author Type: Technologist Type: Progress Notes Filed: 11/21/2022 12:51 PM Note Text: Radiology Service Progress Note PATIENT NAME: Sarah Rodriguez DATE OF SERVICE: November 21, 2022 TIME: 12:51 PM PATIENT IDENTITY VERIFICATION COMPLETED USING TWO (2) IDENTIFIERS: Name and Date of confirmed by patient verbally. FALL SCREENING: Has the patient had 2 falls in the last year or 1 fall with injury or currently using an Ambulatory Assistive Device (Walker, Cane, Wheelchair, Crutches, etc.)? No PATIENT GENDER DATA: Female. status: : No status: NO. PATIENT RELEVANT IMPLANT DATA REVIEWED: Not Applicable RADIOLOGY DEPARTMENT: Mammography PERIPHERAL IV DATA: Not applicable SIGNED BY: RT Alphonso(R) November 21, 2022 12:51 PM [facility] 11-21-2022 History of Presen t illness Narrative Radiology Service Progress Note PATIENT NAME: Sarah Rodriguez DATE OF SERVICE: November 21, 2022 TIME: 12:51 PM PATIENT IDENTITY VERIFICATION COMPLETED USING TWO (2) IDENTIFIERS: Name and Date of confirmed by patient verbally. FALL SCREENING: Has the patient had 2 falls in the last year or 1 fall with injury or currently using an Ambulatory Assistive Device (Walker, Cane, Wheelchair, Crutches, etc.)? No PATIENT GENDER DATA: Female. status: : No status: NO. PATIENT RELEVANT IMPLANT DATA REVIEWED: Not Applicable RADIOLOGY DEPARTMENT: Mammography PERIPHERAL IV DATA: Not applicable SIGNED BY: RT Alphonso(R) November 21, 2022 12:51 PM documented in this encounter [facility] 11-17-2022 Note Patient Outreach (XOCHILT TNAV) SARAH RODRIGUEZ ([id number]) 1955 F Date Time Provider Department 11/17/22 LEILANI JOHNS During your visit today, we recorded the following information about you: Leilani Johns MA 11/17/2022 2:37 PM Signed POPULATION HEALTH NAVIGATION OUTREACH Action/FYI Spoke with Sarah. Scheduled medicare wellness and mammograms ANNUAL MEDICARE WELLNESS ADVANCE DIRECTIVE DISCUSSION due on 06/01/2022 MAMMOGRAM due on 10/31/2022 Patient Identified by Name and : NO Outreach Outcome/Action Spoke to patient / parent / legal guardian: Patient scheduled Did you use a PCP flex slot to schedule this appointment? No Reason for Outreach Care Gap or Scheduling/Wellness visits Payer: Payor: MEDICARE / Plan: MEDICARE A AND B / Product Type: Medicare / Care Gap Reviewed:: Annual Wellness visit Breast Cancer screening Reminder: Reminder note to check Health Maintenance for items below Health Maintenance items due: SHINGRIX VACCINE(1 of 2) Never done PNEUMOCOCCAL: 65+(2 - PPSV23 if available, else PCV20) due on 12/06/2020 LIPID SCREEN due on 12/20/2021 ADVANCE DIRECTIVE DISCUSSION due on 06/01/2022 DEPRESSION ASSESSMENT Never done MAMMOGRAM due on 10/31/2022 Navigation Signature: Leilani Johns MA November 17, 2022 9:59 AM Allergies As of Date: 11/17/2022 Noted Allergy Reaction BACTRIM (SULFAMETHOXAZOLE-TRIMETH*2004 CODEINE 03/01/2005 8 - GI Upset SULFA (SULFONAMIDE ANTIBIOTICS) 10/29/2005 8 - GI Upset Date Reviewed: 08/06/2022 Reviewed by: Coty Norman - Fully Assessed Reason for Visit: Population Health Navigation Outreach [3910] Cmt: ACO ASHLEY PCSA Prescriptions as of 11/17/2022 - Promethazine-DM (PHENERGAN-DM) 6.25-15 mg/5 mL syrup Take 5 mL by mouth four times daily as needed. - levothyroxine (SYNTHROID) 112 mcg tablet Take 1 tablet by mouth once daily. Take on empty stomach. For thyroid - cholecalciferol, vitamin D3, (VITAMIN D3 ORAL) Take by mouth. - CALCIUM ORAL Take by mouth. Problem List As Of Date 11/17/2022 Noted Resolved Unspecified Hypothyroidism [E03.9] 05/18/2006 Routine general medical examination at [facility]*05/30/2009 04/09/2012 Class: Chronic Routine gynecological examination [Z01.419] 05/30/2009 04/09/2012 Class: Chronic Osteopenia [M85.80] 06/06/2014 Sensorineural hearing loss, bilateral [H90.3] 12/11/2016 Encounter Status:Closed by LEILANI JOHNS on 11/17/22 [facility] 11-17-2022 Note HNO ID: [id number] Author: Leilani Johns MA Service: ? Author Type: Baseball Player Type: Progress Notes Filed: 11/17/2022 2:37 PM Note Text: POPULATION HEALTH NAVIGATION OUTREACH Action/FYI Spoke with Sarah. Scheduled medicare wellness and mammograms ANNUAL MEDICARE WELLNESS ADVANCE DIRECTIVE DISCUSSION due on 06/01/2022 MAMMOGRAM due on 10/31/2022 Patient Identified by Name and : NO Outreach Outcome/Action Spoke to patient / parent / legal guardian: Patient scheduled Did you use a PCP flex slot to schedule this appointment? No Reason for Outreach Care Gap or Scheduling/Wellness visits Payer: Payor: MEDICARE / Plan: MEDICARE A AND B / Product Type: Medicare / Care Gap Reviewed:: Annual Wellness visit Breast Cancer screening Reminder: Reminder note to check Health Maintenance for items below Health Maintenance items due: SHINGRIX VACCINE(1 of 2) Never done PNEUMOCOCCAL: 65+(2 - PPSV23 if available, else PCV20) due on 12/06/2020 LIPID SCREEN due on 12/20/2021 ADVANCE DIRECTIVE DISCUSSION due on 06/01/2022 DEPRESSION ASSESSMENT Never done MAMMOGRAM due on 10/31/2022 Navigation Signature: Leilani Johns MA November 17, 2022 9:59 AM [facility] 08-07-2022 Miscellaneous Notes Phone call placed patient advised (see prior provider encounter) Patient reported taking two dosages azithromycin, c/o increased coughing, nasal congestion, denied chest pain, increased fever, SOB. Patient verbalized understanding, agreed with plan of care. Lashonda Arnold LPN Chest xray shows what might be early pneumonia. Both antibiotics she has been on should help. Follow up in one to two weeks. Call if worsens. documented in this encounter [facility] 08-06-2022 Note HNO ID: [id number] Author: RT Dahiana(R) Service: ? Author Type: General Studies Program Chair Type: Progress Notes Filed: 08/06/2022 4:59 PM Note Text: Radiology Service Progress Note PATIENT NAME: Sarah Rodriguez DATE OF SERVICE: August 06, 2022 TIME: 4:49 PM PATIENT IDENTITY VERIFICATION COMPLETED USING TWO (2) IDENTIFIERS: Name and Date of confirmed by patient verbally. FALL SCREENING: Has the patient had 2 falls in the last year or 1 fall with injury or currently using an Ambulatory Assistive Device (Walker, Cane, Wheelchair, Crutches, etc.)? No PATIENT GENDER DATA: Female. status: : No status: NO. PATIENT RELEVANT IMPLANT DATA REVIEWED: Yes RADIOLOGY DEPARTMENT: General X-ray: Exam(s) Completed: Chest X-Ray PERIPHERAL IV DATA: Not applicable SIGNED BY: Kellie Zuluaga, RT(R) August 06, 2022 4:49 PM [facility] 08-06-2022 Note HNO ID: [id number] Author: Alessio Lewis MD Service: ? Author Type: Physician Type: Progress Notes Filed: 08/06/2022 4:40 PM Note Text: Patient presents with: Cough HPI: Patient presents today for office visit for follow up on Bronchitis. Last seen on 07/10/22. Dx with Bronchitis. Doxycycline completed. Started to feel better. Was more energetic. Cough did not completely go away but was a lot better. Had been feeling better. 07/31/22 started with a sore throat again and cough came back. Progressed into nasal congestion, severe cough, fatigue and fever. Home covid test neg today. No fever. No sore throat. Mild nausea, no vomiting or diarrhea. No shortness of breath Coughs all night long. Taking care of grandchild MEDICATIONS: Current Outpatient Medications Medication Sig levothyroxine (SYNTHROID) 112 mcg tablet Take 1 tablet by mouth once daily. Take on empty stomach. For thyroid Promethazine-DM (PHENERGAN-DM) 6.25-15 mg/5 mL syrup Take 5 mL by mouth four times daily as needed. cholecalciferol, vitamin D3, (VITAMIN D3 ORAL) Take by mouth. CALCIUM ORAL Take by mouth. No current facility-administered medications for this visit. ALLERGIES: ALLERGIES Allergen Reactions Bactrim [Sulfametho* Codeine GI Upset Sulfa (Sulfonamide * GI Upset PAST MEDICAL HISTORY Diagnosis Date Unspecified hypothyroidism PAST SURGICAL HISTORY Procedure Laterality Date BIOPSY BREAST OPEN INCISIONAL LUMPECTOMY R BREAST BENIGN DELIVERY ONLY , low cervical X3 COLONOSCOPY FLX DX W/COLLJ SPEC WHEN PFRMD 05/05/2018 Colonoscopy ESOPHAGOGASTRODUODENOSCOPY TRANSORAL DIAGNOSTIC 05/05/2018 EGD LIG/TRNSXJ FLP TUBE ABDL/VAG APPR UNI/BI Tubal ligation PAST SURGICAL HISTORY OF CYST REMOVED ON WRIST FAMILY HISTORY Problem Relation Age of Onset other (alzheimers) Mother diagnosed age early 60's -- possibly related to an MVA Coronary Artery Disease Father first [place] age early 70's Colon Cancer Father Liver Disease Father Cirrhosis other (depression) Father Colon Cancer Other none Diabetes Other none Social History Tobacco Use Smoking status: Former Types: Cigarettes Quit date: 10/29/2020 Years since quittin.7 Smokeless tobacco: Never Tobacco comments: quit 8 years ago Vaping Use Vaping Use: Never used Substance Use Topics Alcohol use: Yes Comment: occasionally Drug use: No Reviewed current medications, allergies, past medical history, surgical history, family history and social history today. REVIEW OF SYSTEMS All other reviewed and negative other than HPI. VITALS: BP 114/84 Pulse 82 Temp 37.9 ?C (100.3 ?F) Ht 160 cm (5' 3 ) Wt 59.9 kg (132 lb) LMP 09/05/2005 SpO2 96% BMI 23.38 kg/m? Last 4 Encounter Wt Readings: Date: Wt: 07/10/2022 61.2 kg (135 lb) 04/28/2022 64.4 kg (142 lb) 01/01/2022 64.6 kg (142 lb 6.4 oz) 10/29/2021 64.9 kg (143 lb) PHYSICAL EXAMINATION: General appearance: Well appearing, alert, in no acute distress, well-hydrated, well nourished. Skin: Skin color, texture, turgor normal, no suspicious rashes or lesions Head: Normocephalic, no masses, lesions, tenderness or abnormalities Eyes: Anicteric sclera. Pupils are equally round and reactive to light. Extraocular movements are intact. Ears: External ears normal, canals clear Nose/Sinuses: Nares normal, septum midline, mucosa normal, no drainage or sinus tenderness Oropharynx: Lips, mucosa, and tongue normal, teeth and gums normal, oropharynx normal Neck: Supple, no adenopathy Lungs: Lungs clear to auscultation. No wheezing, rhonchi, rales Heart: RRR without murmur, gallop, or rubs. No ectopy Abdomen: Normal abdominal exam, Abdomen soft, non-tender. Bowel sounds normal. No masses, organomegaly ASSESSMENT/PLAN: 1. Acute cough - ICD9: 786.2, ICD10: R05.1 (primary diagnosis) - Discussed risks and benefits of new medication with the patient. Advised them to call if any side effects or questions. Red flags for re-assessment reviewed with patient in detail. Call if symptoms worsen at all or if not better in one to two weeks Reviewed diagnosis and treatment options in detail. Questions were answered. Patient expressed understanding of treatment plan. - XR CHEST 2V FRONTAL/LAT - COVID WITH FLUA+B, ROUTINE - PROMETHAZINE-DM 6.25 MG-15 MG/5 ML ORAL SYRUP - AZITHROMYCIN 250 MG TABLET 2. Bronchitis - ICD9: 490, ICD10: J40 - Discussed risks and benefits of new medication with the patient. Advised them to call if any side effects or questions. Red flags for re-assessment reviewed with patient in detail. Call if symptoms worsen at all or if not better in one to two weeks Reviewed diagnosis and treatment options in detail. Questions were answered. Patient expressed understanding of treatment plan. - XR CHEST 2V FRONTAL/LAT - COVID WITH FLUA+B, ROUTINE - PROMETHAZINE-DM 6.25 MG-15 MG/5 ML ORAL SYRUP - AZITHR (more content not included)... [facility] 08-06-2022 History of Presen t illness Narrative Patient presents with: Cough HPI: Patient presents today for office visit for follow up on Bronchitis. Last seen on 07/10/22. Dx with Bronchitis. Doxycycline completed. Started to feel better. Was more energetic. Cough did not completely go away but was a lot better. Had been feeling better. 07/31/22 started with a sore throat again and cough came back. Progressed into nasal congestion, severe cough, fatigue and fever. Home covid test neg today. No fever. No sore throat. Mild nausea, no vomiting or diarrhea. No shortness of breath Coughs all night long. Taking care of grandchild MEDICATIONS: Current Outpatient Medications Medication Sig levothyroxine (SYNTHROID) 112 mcg tablet Take 1 tablet by mouth once daily. Take on empty stomach. For thyroid Promethazine-DM (PHENERGAN-DM) 6.25-15 mg/5 mL syrup Take 5 mL by mouth four times daily as needed. cholecalciferol, vitamin D3, (VITAMIN D3 ORAL) Take by mouth. CALCIUM ORAL Take by mouth. No current facility-administered medications for this visit. ALLERGIES: ALLERGIES Allergen Reactions Bactrim [Sulfametho* Codeine GI Upset Sulfa (Sulfonamide * GI Upset PAST MEDICAL HISTORY Diagnosis Date Unspecified hypothyroidism PAST SURGICAL HISTORY Procedure Laterality Date BIOPSY BREAST OPEN INCISIONAL LUMPECTOMY R BREAST BENIGN DELIVERY ONLY , low cervical X3 COLONOSCOPY FLX DX W/COLLJ SPEC WHEN PFRMD 05/05/2018 Colonoscopy ESOPHAGOGASTRODUODENOSCOPY TRANSORAL DIAGNOSTIC 05/05/2018 EGD LIG/TRNSXJ FLP TUBE ABDL/VAG APPR UNI/BI Tubal ligation PAST SURGICAL HISTORY OF CYST REMOVED ON WRIST FAMILY HISTORY Problem Relation Age of Onset other (alzheimers) Mother diagnosed age early 60's -- possibly related to an MVA Coronary Artery Disease Father first [place] age early 70's Colon Cancer Father Liver Disease Father Cirrhosis other (depression) Father Colon Cancer Other none Diabetes Other none Social History Tobacco Use Smoking status: Former Types: Cigarettes Quit date: 10/29/2020 Years since quittin.7 Smokeless tobacco: Never Tobacco comments: quit 8 years ago Vaping Use Vaping Use: Never used Substance Use Topics Alcohol use: Yes Comment: occasionally Drug use: No Reviewed current medications, allergies, past medical history, surgical history, family history and social history today. REVIEW OF SYSTEMS All other reviewed and negative other than HPI. VITALS: BP 114/84 Pulse 82 Temp 37.9 C (100.3 F) Ht 160 cm (5' 3 ) Wt 59.9 kg (132 lb) LMP 09/05/2005 SpO2 96% BMI 23.38 kg/m Last 4 Encounter Wt Readings: Date: Wt: 07/10/2022 61.2 kg (135 lb) 04/28/2022 64.4 kg (142 lb) 01/01/2022 64.6 kg (142 lb 6.4 oz) 10/29/2021 64.9 kg (143 lb) PHYSICAL EXAMINATION: General appearance: Well appearing, alert, in no acute distress, well-hydrated, well nourished. Skin: Skin color, texture, turgor normal, no suspicious rashes or lesions Head: Normocephalic, no masses, lesions, tenderness or abnormalities Eyes: Anicteric sclera. Pupils are equally round and reactive to light. Extraocular movements are intact. Ears: External ears normal, canals clear Nose/Sinuses: Nares normal, septum midline, mucosa normal, no drainage or sinus tenderness Oropharynx: Lips, mucosa, and tongue normal, teeth and gums normal, oropharynx normal Neck: Supple, no adenopathy Lungs: Lungs clear to auscultation. No wheezing, rhonchi, rales Heart: RRR without murmur, gallop, or rubs. No ectopy Abdomen: Normal abdominal exam, Abdomen soft, non-tender. Bowel sounds normal. No masses, organomegaly ASSESSMENT/PLAN: 1. Acute cough - ICD9: 786.2, ICD10: R05.1 (primary diagnosis) - Discussed risks and benefits of new medication with the patient. Advised them to call if any side effects or questions. Red flags for re-assessment reviewed with patient in detail. Call if symptoms worsen at all or if not better in one to two weeks Reviewed diagnosis and treatment options in detail. Questions were answered. Patient expressed understanding of treatment plan. - XR CHEST 2V FRONTAL/LAT - COVID WITH FLUA+B, ROUTINE - PROMETHAZINE-DM 6.25 MG-15 MG/5 ML ORAL SYRUP - AZITHROMYCIN 250 MG TABLET 2. Bronchitis - ICD9: 490, ICD10: J40 - Discussed risks and benefits of new medication with the patient. Advised them to call if any side effects or questions. Red flags for re-assessment reviewed with patient in detail. Call if symptoms worsen at all or if not better in one to two weeks Reviewed diagnosis and treatment options in detail. Questions were answered. Patient expressed understanding of treatment plan. - XR CHEST 2V FRONTAL/LAT - COVID WITH FLUA+B, ROUTINE - PROMETHAZINE-DM 6.25 MG-15 MG/5 ML ORAL SYRUP - AZITHROMYCIN 250 MG TABLET Alessio Lewis MD documented in this encounter [facility] 07-28-2022 Miscellaneous Notes Patient has been identified by name and date of : Yes Requested Prescriptions Pending Prescriptions Disp Refills levothyroxine (SYNTHROID) 112 mcg tablet 30 tablet 11 Sig: Take 1 tablet by mouth once daily. Take on empty stomach. For thyroid RX INSTRUCTIONS: Patient aware RX will be sent to pharmacy. No need to notify patient. Paula Enrique MA Renetta; 09/2021 No follow up on scheduled Last refill: 07/2021 Patient has been identified by name and date of : Yes Requested Prescriptions Pending Prescriptions Disp Refills levothyroxine (SYNTHROID) 112 mcg tablet 30 tablet 11 Sig: Take 1 tablet by mouth once daily. Take on empty stomach. For thyroid RX INSTRUCTIONS: Patient aware RX will be sent to pharmacy. No need to notify patient. Alva Johnson Pss documented in this encounter [facility] 07-10-2022 Note HNO ID: [id number] Author: Alessio Lewis MD Service: ? Author Type: Physician Type: Progress Notes Filed: 07/10/2022 11:53 AM Note Text: Patient presents with: Head Congestion: Eyes watering, cough productive, PND, sore throat, body aches, fatigue Using prometazine cough syrup and tessalon without much relief HPI: Patient presents today for office visit for follow up. Started sick on 06/30 Did do a home covid test which was negative. Fatigue. Eyes are red and watering. They are mattering. Vision seems off with watering. No ear pain Cough that is productive of brown mucous. No blood. No shortness of breath. Some nausea. No vomiting or diarrhea. Discussed since ill for 11 days, will not test for flu. Has head congestion with drainage. Temp is up to 100.4 Has had some headache. Is a quick sharp pain but then goes away. Red flags for re-assessment reviewed with patient in detail. Not thunderclap headache. MEDICATIONS: Current Outpatient Medications Medication Sig Promethazine-DM (PHENERGAN-DM) 6.25-15 mg/5 mL syrup Take 5 mL by mouth four times daily as needed. levothyroxine (SYNTHROID) 112 mcg tablet Take 1 tablet by mouth once daily. Take on empty stomach. For thyroid cholecalciferol, vitamin D3, (VITAMIN D3 ORAL) Take by mouth. CALCIUM ORAL Take by mouth. No current facility-administered medications for this visit. ALLERGIES: ALLERGIES Allergen Reactions Bactrim [Sulfametho* Codeine GI Upset Sulfa (Sulfonamide * GI Upset PAST MEDICAL HISTORY Diagnosis Date Unspecified hypothyroidism PAST SURGICAL HISTORY Procedure Laterality Date BIOPSY BREAST OPEN INCISIONAL LUMPECTOMY R BREAST BENIGN DELIVERY ONLY , low cervical X3 COLONOSCOPY FLX DX W/COLLJ SPEC WHEN PFRMD 05/05/2018 Colonoscopy ESOPHAGOGASTRODUODENOSCOPY TRANSORAL DIAGNOSTIC 05/05/2018 EGD LIG/TRNSXJ FLP TUBE ABDL/VAG APPR UNI/BI Tubal ligation PAST SURGICAL HISTORY OF CYST REMOVED ON WRIST FAMILY HISTORY Problem Relation Age of Onset other (alzheimers) Mother diagnosed age early 60's -- possibly related to an MVA Coronary Artery Disease Father first NH age early 70's Colon Cancer Father Liver Disease Father Cirrhosis other (depression) Father Colon Cancer Other none Diabetes Other none Social History Tobacco Use Smoking status: Former Types: Cigarettes Quit date: 10/29/2020 Years since quittin.6 Smokeless tobacco: Never Tobacco comments: quit 8 years ago Vaping Use Vaping Use: Never used Substance Use Topics Alcohol use: Yes Comment: occasionally Drug use: No Reviewed current medications, allergies, past medical history, surgical history, family history and social history today. REVIEW OF SYSTEMS All other reviewed and negative other than HPI. VITALS: BP 106/70 Pulse 81 Temp 37.5 ?C (99.5 ?F) (Tympanic) Wt 61.2 kg (135 lb) LMP 09/05/2005 SpO2 95% BMI 23.91 kg/m? Last 4 Encounter Wt Readings: Date: Wt: 07/10/2022 61.2 kg (135 lb) 04/28/2022 64.4 kg (142 lb) 01/01/2022 64.6 kg (142 lb 6.4 oz) 10/29/2021 64.9 kg (143 lb) PHYSICAL EXAMINATION: General appearance: Well appearing, alert, in no acute distress, well-hydrated, well nourished. Skin: Skin color, texture, turgor normal, no suspicious rashes or lesions Head: Normocephalic, no masses, lesions, tenderness or abnormalities Eyes: conjunctiva is slightly red. Perrla. Ears: External ears normal, canals clear. Clear serous fluids. Nose/Sinuses: slightly tender over right maxillary sinus Oropharynx: Lips, mucosa, and tongue normal, teeth and gums normal, oropharynx normal Lungs:CTA Heart: RRR without murmur, gallop, or rubs. No ectopy Abdomen: Normal abdominal exam, Abdomen soft, non-tender. Bowel sounds normal. No masses, organomegaly Extremities: No deformities, edema ASSESSMENT/PLAN: 1. Bronchitis - ICD9: 490, ICD10: J40 (primary diagnosis) - Discussed risks and benefits of new medication with the patient. Advised them to call if any side effects or questions. Red flags for re-assessment reviewed with patient in detail. Call if symptoms worsen at all or if not better in one to two weeks Reviewed diagnosis and treatment options in detail. Questions were answered. Patient expressed understanding of treatment plan. - DOXYCYCLINE MONOHYDRATE 100 MG TABLET 2. Conjunctivitis of both eyes, unspecified conjunctivitis type - ICD9: 372.30, ICD10: H10.9 - see medication orders - GENTAMICIN 0.3 % EYE DROPS Alessio Lewis MD [facility] 01-01-2022 History of Presen t illness Narrative Patient presents with: Sore Throat: Woke up with sore throat on Thursday12/30/21 with slight cough. This morning noticed white spot in back of throat on right side and was able to pop whatever it was and lots of discharge came out. Sore throat has since relieved HPI: Patient presents today for office visit for acute illness. See above. No fever or chills. Did a home covid which was negative. Occasional cough. Throat is better now but more sore in am. No congestion. No swollen glands. No vomiting or diarrhea. Mild nausea. MEDICATIONS: Current Outpatient Medications Medication Sig levothyroxine (SYNTHROID) 112 mcg tablet Take 1 tablet by mouth once daily. Take on empty stomach. For thyroid cholecalciferol, vitamin D3, (VITAMIN D3 ORAL) Take by mouth. CALCIUM ORAL Take by mouth. No current facility-administered medications for this visit. ALLERGIES: ALLERGIES Allergen Reactions Bactrim [Sulfametho* Codeine GI Upset Sulfa (Sulfonamide * GI Upset PAST MEDICAL HISTORY Diagnosis Date Unspecified hypothyroidism PAST SURGICAL HISTORY Procedure Laterality Date BIOPSY BREAST OPEN INCISIONAL LUMPECTOMY R BREAST BENIGN DELIVERY ONLY , low cervical X3 COLONOSCOPY FLX DX W/COLLJ SPEC WHEN PFRMD 05/05/2018 Colonoscopy ESOPHAGOGASTRODUODENOSCOPY TRANSORAL DIAGNOSTIC 05/05/2018 EGD LIG/TRNSXJ FLP TUBE ABDL/VAG APPR UNI/BI Tubal ligation PAST SURGICAL HISTORY OF CYST REMOVED ON WRIST FAMILY HISTORY Problem Relation Age of Onset other (alzheimers) Mother diagnosed age early 60's -- possibly related to an MVA Coronary Artery Disease Father first NH age early 70's Colon Cancer Father Liver Disease Father Cirrhosis other (depression) Father Colon Cancer Other none Diabetes Other none Social History Tobacco Use Smoking status: Former Smoker Types: Cigarettes Quit date: 10/29/2020 Years since quittin.1 Smokeless tobacco: Never Used Tobacco comment: quit 8 years ago Vaping Use Vaping Use: Never used Substance Use Topics Alcohol use: Yes Comment: occasionally Drug use: No Reviewed current medications, allergies, past medical history, surgical history, family history and social history today. REVIEW OF SYSTEMS All other reviewed and negative other than HPI. VITALS: BP 100/68 Pulse 75 Temp 37.1 C (98.8 F) Ht 160 cm (5' 3 ) Wt 64.6 kg (142 lb 6.4 oz) LMP 09/05/2005 SpO2 94% BMI 25.23 kg/m Last 4 Encounter Wt Readings: Date: Wt: 01/01/2022 64.6 kg (142 lb 6.4 oz) 10/29/2021 64.9 kg (143 lb) 01/27/2021 66.2 kg (146 lb) 12/12/2020 66.7 kg (147 lb) PHYSICAL EXAMINATION: General appearance: Well appearing, alert, in no acute distress, well-hydrated, well nourished. Skin: Skin color, texture, turgor normal, no suspicious rashes or lesions Head: Normocephalic, no masses, lesions, tenderness or abnormalities Eyes: Anicteric sclera. Pupils are equally round and reactive to light. Extraocular movements are intact. Ears: External ears normal, canals clear Nose/Sinuses: Nares normal, septum midline, mucosa normal, no drainage or sinus tenderness Oropharynx: Lips, mucosa, and tongue normal, teeth and gums normal, oropharynx normal and may have had tonsil stone-looks fine now. Neck: Supple, no adenopathy Lungs: Lungs clear to auscultation. No wheezing, rhonchi, rales Heart: RRR without murmur, gallop, or rubs. No ectopy Abdomen: Normal abdominal exam, Abdomen soft, non-tender. Bowel sounds normal. No masses, organomegaly Extremities: No deformities, edema, skin discoloration, clubbing or cyanosis. Good capillary refill. ASSESSMENT/PLAN: 1. Pharyngitis, unspecified etiology - ICD9: 462, ICD10: J02.9 (primary diagnosis) - strep is neg - Red flags for re-assessment reviewed with patient in detail. - Call if symptoms worsen at all or if not better in one to two weeks - RAPID STREP TEST B/O - COVID WITH FLUA+B, ROUTINE 2. Cough, unspecified type - ICD9: 786.2, ICD10: R05.9 - COVID WITH FLUA+B, ROUTINE 3. Acute upper respiratory infection, unspecified - ICD9: 465.9, ICD10: J06.9 - Discussed viral etiology and rationale for treatment. - Symptomatic treatment with prn analgesia - Supportive care with fluids and rest - COVID WITH FLUA+B, ROUTINE Alessio Lewis Medical Decision Making documented in this encounter [facility] 11-04-2021 History of Presen t illness Narrative Radiology Service Progress Note PATIENT NAME: Sarah Rodriguez DATE OF SERVICE: November 04, 2021 TIME: 9:14 AM PATIENT IDENTITY VERIFICATION COMPLETED USING TWO (2) IDENTIFIERS: Name and Date of confirmed by patient verbally. FALL SCREENING: Has the patient had 2 falls in the last year or 1 fall with injury or currently using an Ambulatory Assistive Device (Walker, Cane, Wheelchair, Crutches, etc.)? No PATIENT GENDER DATA: Female. status: : No status: N/A PATIENT RELEVANT IMPLANT DATA REVIEWED: Not Applicable RADIOLOGY DEPARTMENT: Ultrasound PERIPHERAL IV DATA: Not applicable SIGNED BY: Irene Irizarry RDMS RVT November 04, 2021 9:14 AM documented in this encounter [facility] 10-31-2021 Miscellaneous Notes October 31, 2021 PID: [id number] Sarah Rodriguez [id number] [place] [address] Dear Ms. Rodriguez, We are pleased to inform you that the results of your recent breast imaging exam on 10/31/2021 are normal. Your mammogram demonstrates that you have dense breast tissue, which could hide abnormalities. Dense breast tissue, in and of itself, is a relatively common condition. Therefore, this information is not provided to cause undue concern; rather, it is to raise your awareness and promote discussion with your health care provider regarding the presence of dense breast tissue in addition to other risk factors. Early detection of cancer is very important. We also understand recommendations regarding breast cancer screening are controversial. Please discuss with your primary care provider which strategy is best for you and whether a mammogram is right for you. Your imaging studies and report will be kept on file at [facility] as part of your permanent medical record and are available for your continuing care. Thank you for allowing us to help in meeting your health care needs. Sincerely, Dr. Redman Interpreting Radiologist [facility] (Normal over 40) documented in this encounter [facility] 10-31-2021 History of Presen t illness Narrative Radiology Service Progress Note PATIENT NAME: Sarah Rodriguez DATE OF SERVICE: October 31, 2021 TIME: 2:13 PM PATIENT IDENTITY VERIFICATION COMPLETED USING TWO (2) IDENTIFIERS: Name and Date of confirmed by patient verbally. FALL SCREENING: Has the patient had 2 falls in the last year or 1 fall with injury or currently using an Ambulatory Assistive Device (Walker, Cane, Wheelchair, Crutches, etc.)? No PATIENT GENDER DATA: Female. status: : No status: NO. PATIENT RELEVANT IMPLANT DATA REVIEWED: Not Applicable RADIOLOGY DEPARTMENT: Mammography PERIPHERAL IV DATA: Not applicable SIGNED BY: Ronda Ross October 31, 2021 2:13 PM documented in this encounter [facility] 10-29-2021 History of Presen t illness Narrative Patient presents with: Yearly Exam HPI: Patient presents today for office visit for check up/not wellness. HYPOTHYROID: Patient is compliant with medications: Yes Patient has changes in energy: No Patient has changes in hair or skin: No Patient has temperature intolerance: No Patient has weight changes: No Gets occasional lightheaded spells. Was looked at it remotely in 2017. They had wondered if it was stress related. Did ekg and labs. Had an episode about a week ago. May have had one a month before that. No true vertigo. Happens if moving her head quickly. No headache, vision changes, focal numbness or weakness. No tinnitus. Component Latest Ref Rng & Units 10/03/2021 10/23/2021 WBC 3.70 - 11.00 k/uL 8.10 RBC 3.90 - 5.20 m/uL 5.09 Hemoglobin 11.5 - 15.5 g/dL 15.1 Hematocrit 36.0 - 46.0 % 47.5 (H) MCV 80.0 - 100.0 fL 93.3 MCH 26.0 - 34.0 pg 29.7 MCHC 30.5 - 36.0 g/dL 31.8 RDW-CV 11.5 - 15.0 % 13.2 Platelet Count 150 - 400 k/uL 190 MPV 9.0 - 12.7 fL 12.0 Neut% % 44.5 Abs Neut (ANC) 1.45 - 7.50 k/uL 3.60 Lymph% % 41.4 Abs Lymph 1.00 - 4.00 k/uL 3.35 [place]% % 8.1 Abs [place] <0.87 k/uL 0.66 Eosin% % 4.9 Abs Eosin <0.46 k/uL 0.40 Baso% % 0.7 Abs Baso <0.11 k/uL 0.06 Immature Gran % % 0.4 IMMATURE GRANS (ABS) <0.10 k/uL 0.03 NRBC /100 WBC 0.0 Absolute nRBC <0.01 k/uL <0.01 DTYPE Auto Protein, Total 6.3 - 8.0 g/dL 7.3 6.9 Albumin 3.9 - 4.9 g/dL 4.3 4.1 Calcium 8.5 - 10.2 mg/dL 10.2 Bilirubin, Total 0.2 - 1.3 mg/dL 0.4 0.3 Alkaline Phosphatase 34 - 123 U/L 67 65 AST 13 - 35 U/L 40 (H) 48 (H) ALT 7 - 38 U/L 55 (H) 54 (H) Glucose 74 - 99 mg/dL 110 (H) BUN 7 - 21 mg/dL 17 Creatinine 0.58 - 0.96 mg/dL 0.66 Sodium 136 - 144 mmol/L 139 Potassium 3.7 - 5.1 mmol/L 4.0 Chloride 97 - 105 mmol/L 103 CO2 22 - 30 mmol/L 28 Anion Gap 9 - 18 mmol/L 8 (L) eGFR >=60 mL/min/1.73m 96 Bilirubin, Conjug <0.2 mg/dL <0.2 TSH 0.270 - 4.200 mIU/L 1.950 HCV RNA by PCR HCV RNA not detected by PCR. HCV RNA not detected by PCR. Hep B Surface Ag Negative Negative Hep A Ab, IgM Negative Negative Hep B Core Ab, IgM Negative Negative MEDICATIONS: Current Outpatient Medications Medication Sig levothyroxine (SYNTHROID) 112 mcg tablet Take 1 tablet by mouth once daily. Take on empty stomach. For thyroid cholecalciferol, vitamin D3, (VITAMIN D3 ORAL) Take by mouth. CALCIUM ORAL Take by mouth. No current facility-administered medications for this visit. ALLERGIES: ALLERGIES Allergen Reactions Bactrim [Sulfametho* Codeine GI Upset Sulfa (Sulfonamide * GI Upset PAST MEDICAL HISTORY Diagnosis Date Unspecified hypothyroidism PAST SURGICAL HISTORY Procedure Laterality Date BIOPSY BREAST OPEN INCISIONAL LUMPECTOMY R BREAST BENIGN DELIVERY ONLY , low cervical X3 COLONOSCOPY FLX DX W/COLLJ SPEC WHEN PFRMD 05/05/2018 Colonoscopy ESOPHAGOGASTRODUODENOSCOPY TRANSORAL DIAGNOSTIC 05/05/2018 EGD LIG/TRNSXJ FLP TUBE ABDL/VAG APPR UNI/BI Tubal ligation PAST SURGICAL HISTORY OF CYST REMOVED ON WRIST FAMILY HISTORY Problem Relation Age of Onset other (alzheimers) Mother diagnosed age early 60's -- possibly related to an MVA Coronary Artery Disease Father first [place] age early 70's Colon Cancer Father Liver Disease Father Cirrhosis other (depression) Father Colon Cancer Other none Diabetes Other none Social History Tobacco Use Smoking status: Former Smoker Types: Cigarettes Quit date: 10/29/2020 Years since quittin.0 Smokeless tobacco: Never Used Tobacco comment: quit 8 years ago Vaping Use Vaping Use: Never used Substance Use Topics Alcohol use: Yes Comment: occasionally Drug use: No Reviewed current medications, allergies, past medical history, surgical history, family history and social history today. REVIEW OF SYSTEMS RESPIRATORY: Negative for cough, hemoptysis, wheezing, COPD, dyspnea or shortness of breath CARDIOVASCULAR: Negative for chest pain, leg swelling, hypertension, CHF or palpitations GI: No nausea, vomiting, or diarrhea : No history of dysuria, frequency or incontinence All other reviewed and negative other than HPI. HEALTH MAINTENANCE: Reviewed health maintenance issues today and recommended the following in detail. SHINGRIX VACCINE(1 of 2) Never done MAMMOGRAM-has orders PNEUMOCOCCAL: 63+(2 - PPSV23 or PCV20) due on 12/06/2020 ADVANCE DIRECTIVE DISCUSSION -discussed. VITALS: BP 120/82 Pulse 68 Resp 16 Wt 64.9 kg (143 lb) LMP 09/05/2005 SpO2 96% BMI 25.13 kg/m Last 4 Encounter Wt Readings: Date: Wt: 10/29/2021 64.9 kg (143 lb) 01/27/2021 66.2 kg (146 lb) 12/12/2020 66.7 kg (147 lb) 10/11/2020 65.8 kg (145 lb) PHYSICAL EXAMINATION: General appearance: Well appearing, alert, in no acute distress, well-hydrated, well nourished. Skin: Skin color, texture, turgor normal, no suspicious rashes or lesions Head: Normocephalic, no masses, lesions, tenderness or abnormalities Eyes: Anicteric sclera. Pupils are equally round and reactive to light. Extraocular movements are intact. , no nystagmu Ears: External ears normal, canals clear Neck: Supple, no adenopathy; thyroid symmetric, normal size, no bruits Back: Normal exam Lungs: Lungs clear to auscultation. No wheezing, rhonchi, rales Heart: RRR without murmur, gallop, or rubs. No ectopy Abdomen: Normal abdominal exam, Abdomen soft, non-tender. Bowel sounds normal. No masses, organomegaly Extremities: No deformities, edema, skin discoloration, clubbing or cyanosis. Good capillary refill. Musculoskeletal: No joint swelling, deformity, or tenderness Peripheral pulses: Normal Neuro: Gait normal. Reflexes normal and symmetric. Sensation grossly intact., Negative findings: speech normal, mental status intact, cranial nerves 2-12 intact, muscle tone normal, muscle strength normal, negative hallpike. Cannot reproduce today. ASSESSMENT/PLAN: 1. Unspecified hypothyroidism - ICD9: 244.9, ICD10: E03.9 (primary diagnosis) - Instructed patient on importance of taking on an empty stomach either first thing in the morning or at bedtime. 2. Screening breast examination - ICD9: V76.10, ICD10: Z12.39 - PETE SCREENING W OSMAN 3. Encounter for screening mammogram for malignant neoplasm of breast - ICD9: V76.12, ICD10: Z12.31 - Follow up for annual exam in one year. - PETE SCREENING W OSMAN 4. Vertigo. Recommended vestibular therapy. She wants to wait on work up. Will let me know if continues. 5. Elevated liver enzymes. Discussed things like H[place]IL[place] etc. Get us and repeat lfts. Limit etoh and tylenol. Alessio Lewis RTO annually. documented in this encounter [facility] 10-25-2021 Miscellaneous Notes Patient was notified and transferred to gluing machine operator automatic [facility] Watson Ma Liver enzymes are still up slightly. Hepatitis profile is negative. Recommend liver us and recheck liver enzymes in two months. I documented in this encounter [facility] 10-04-2021 Miscellaneous Notes Patient notified of results and provider's instructions. Patient verbalizes understanding. Patient scheduled appointment on 10/29/[address] Lewis. Rima Vega RN Left message for patient to call office back. Please give results and schedule follow up with Dr. Lewis or Aylin. Nu Watson Ma Labs are stable. Liver is mildly up. Recheck liver labs in two weeks. Due for check up. documented in this encounter [facility] documented as of this encounter (statuses as of 09/30/2021) [facility]12-[facility]2009 History of Past illness Narrative* Problem Noted Date Resolved Date Routine general medical exam ination at a health care facility 05/30/2009 04/09/2012 Overview: 05/30/2009, from Dr. Murphy Routine gynecological examination 05/30/2009 04/09/2012 Overview: [facility], [facility] Ramirez documented as of this encounter (statuses as of 10/04/2021) [facility] History of Past illness Narrative* Problem Noted Date Resolved Date Routine general medical exam ination at a health care facility 05/30/2009 04/09/2012 Overview: 05/30/2009, from Dr. Murphy Routine gynecological examination 05/30/2009 04/09/2012 Overview: [facility], [facility] Ramirez documented as of this encounter (statuses as of 10/25/2021) [facility] History of Past illness Narrative* Problem Noted Date Resolved Date Routine general medical exam ination at a health care facility 05/30/2009 04/09/2012 Overview: 05/30/2009, from Dr. Murphy Routine gynecological examination 05/30/2009 [facility]statuses as of 10/29/2021) [facility] History of Past illness Narrative* Problem Noted Date Resolved Date Routine general medical exam ination at a health care facility 05/30/2009 04/09/2012 Overview: 05/30/2009, from Dr. Murphy Routine gynecological examination 05/30/2009 04/09/2012 Overview: [facility], [facility] documented as of this encounter (statuses as of 11/01/2021) [facility] History of Past illness Narrative* Problem Noted Date Resolved Date Routine general medical exam ination at a health care facility 05/30/2009 04/09/2012 Overview: 05/30/2009, from Dr. Murphy Routine gynecological examination 05/30/2009 04/09/2012 Overview: [facility], [facility] documented as of this encounter (statuses as of 11/02/2021) [facility] History of Past illness Narrative* Problem Noted Date Resolved Date Routine general medical exam ination at a health care facility 05/30/2009 04/09/2012 Overview: 05/30/2009, from Dr. Murphy Routine gynecological examination 05/30/2009 04/09/2012 Overview: [facility] documented as of this encounter (statuses as of 11/05/2021) [facility]12-30-2009 History of Past illness Narrative* Problem Noted Date Resolved Date Routine general medical exam ination at a health care facility 05/30/2009 04/09/2012 Overview: 05/30/2009, from Dr. Murphy Routine gynecological examination 05/30/2009 04/09/2012 Overview: [facility] documented as of this encounter (statuses as of 01/01/2022) [facility]12-30[facility]2009 History of Past illness Narrative* Problem Noted Date Resolved Date Routine general medical exam ination at a health care facility 05/30/2009 04/09/2012 Overview: 05/30/2009, from Dr. Murphy Routine gynecological examination 05/30/2009 04/09/2012 Overview: [facility] documented as of this encounter (statuses as of 07/28/2022) [facility] History of Past illness Narrative* Problem Noted Date Resolved Date Routine general medical exam ination at a health care facility 05/30/2009 04/09/2012 Overview: 05/30/2009, from Dr. Murphy Routine gynecological examination 05/30/2009 04/09/2012 Overview: [facility] documented as of this encounter (statuses as of 08/07/2022) [facility] History of Past illness Narrative* Problem Noted Date Resolved Date Routine general medical exam ination at a health care facility 05/30/2009 04/09/2012 Overview: 05/30/2009, from Dr. Murphy Routine gynecological examination 05/30/2009 04/09/2012 Overview: [facility] documented as of this encounter (statuses as of 08/08/2022) [facility]2009 History of Past illness Narrative* Problem Noted Date Resolved Date Routine general medical exam ination at a health care facility 05/30/2009 04/09/2012 Overview: 05/30/2009, from Dr. Murphy Routine gynecological examination 05/30/2009 04/09/2012 Overview: [facility] documented as of this encounter (statuses as of 11/22/2022) [facility] History of Past illness Narrative* Problem Noted Date Resolved Date Routine general medical exam ination at a health care facility 05/30/2009 04/09/2012 Overview: 05/30/2009, from Dr. Murphy Routine gynecological examination 05/30/2009 04/09/2012 Overview: [facility] documented as of this encounter (statuses as of 11/26/2022) [facility] History of Past illness Narrative* Problem Noted Date Diagnosed Date Resolved Date Routine general medical exam ination at a health care facility 05/30/2009 04/09/2012 Overview: 05/30/2009, from Dr. Murphy Routine gynecological examination 05/30/2009 04/09/2012 Overview: [facility] documented as of this encounter (statuses as of 01/21/2023) [facility] History of Past illness Narrative* Problem Noted Date Diagnosed Date Resolved Date Routine general medical exam ination at a health care facility 05/30/2009 04/09/2012 Overview: 05/30/2009, from Dr. Murphy Routine gynecological examination 05/30/2009 04/09/2012 Overview: [facility] documented as of this encounter (statuses as of 01/26/2023) [facility] History of Past illness Narrative* Problem Noted Date Diagnosed Date Resolved Date Routine general medical exam ination at a health care facility 05/30/2009 04/09/2012 Overview: 05/30/2009, from Dr. Murphy Routine gynecological examination 05/30/2009 04/09/2012 Overview: [facility] documented as of this encounter (statuses as of 02/23/2023) [facility] History of Past illness Narrative* Problem Noted Date Diagnosed Date Resolved Date Routine general medical exam ination at a health care facility 05/30/2009 04/09/2012 Overview: 05/30/2009, from Dr. Murphy Routine gynecological examination 05/30/2009 04/09/2012 Overview: [facility] documented as of this encounter (statuses as of 03/04/2023) [facility] History of Past illness Narrative* Problem Noted Date Diagnosed Date Resolved Date Routine general medical exam ination at a health care facility 05/30/2009 04/09/2012 Overview: 05/30/2009, from Dr. Murphy Routine gynecological examination 05/30/2009 04/09/2012 Overview: [facility] documented as of this encounter (statuses as of 03/24/2023) [facility] History of Past illness Narrative* Problem Noted Date Diagnosed Date Resolved Date Routine general medical exam ination at a health care facility 05/30/2009 04/09/2012 Overview: 05/30/2009, from Dr. Murphy Routine gynecological examination 05/30/2009 04/09/2012 Overview: [facility] documented as of this encounter (statuses as of 04/05/2023) [facility] History of Past illness Narrative* Problem Noted Date Diagnosed Date Resolved Date Routine general medical exam ination at a health care facility 05/30/2009 04/09/2012 Overview: 05/30/2009, from Dr. Murphy Routine gynecological examination 05/30/2009 04/09/2012 Overview: [facility] documented as of this encounter (statuses as of 04/05/2023) [facility] History of Past illness Narrative* Problem Noted Date Diagnosed Date Resolved Date Routine general medical exam ination at a health care facility 05/30/2009 04/09/2012 Overview: 05/30/2009, from Dr. Murphy Routine gynecological examination 05/30/2009 04/09/2012 Overview: [facility] documented as of this encounter (statuses as of 04/05/2023) [facility] History of Past illness Narrative* Problem Noted Date Diagnosed Date Resolved Date Routine general medical exam ination at a health care facility 05/30/2009 04/09/2012 Overview: 05/30/2009, from Dr. Murphy Routine gynecological examination 05/30/2009 04/09/2012 Overview: [facility] [place] documented as of this encounter (statuses as of 04/05/2023) [facility] note* Diagnosis Encounter for screening mammogram for breast cancer [facility] Diagnosis Elevated liver enzymes- Primary Other nonspecific abnormal serum enzyme levels [facility]* Diagnosis Elevated liver enzymes- Primary Other nonspecific abnormal serum enzyme levels [facility]* Diagnosis Unspecified hypothyroidism- Primary Screening breast examination Breast screening, unspecified Encounter for screening mammogram for malignant neoplasm of breast Other screening mammogram Vertigo Dizziness and giddiness [facility]* Diagnosis Screening breast examination Breast screening, unspecified Encounter for screening mammogram for malignant neoplasm of breast Other screening mammogram [facility]* Diagnosis Elevated liver enzymes Other nonspecific abnormal serum enzyme levels [facility]* Diagnosis Pharyngitis, unspecified etiology- Primary Cough, unspecified type Acute upper respiratory infection, unspecified [facility]* Diagnosis Hypothyroidism, acquired Unspecified hypothyroidism [facility]* Diagnosis Acute cough- Primary Bronchitis Bronchitis, not specified as acute or chronic [facility]* Diagnosis Bacterial conjunctivitis- Primary Other conjunctivitis [facility]* Diagnosis Sensorineural hearing loss, bilateral- Primary [facility] Diagnosis Viral bronchitis- Primary Acute bronchitis [facility] Diagnosis Chronic sinusitis, unspecified location- Primary [facility]* Diagnosis Sensorineural hearing loss, bilateral- Primary [facility]* Diagnosis Localized enlarged lymph nodes Enlargement of lymph nodes [facility]* Diagnosis Thyroid nodule Nontoxic uninodular goiter [facility] Diagnosis Asymptomatic menopausal state Asymptomatic postmenopausal status (age-related) (natural) documented in this encounter [facility] for referral (narrative)* Diagnostic Procedure Only (Routine) - Pending Review Specialty Diagnoses / Procedures Referred By Hay locke Referred To Contact [facility] Diagnoses Encounter for screening mammogram for breast cancer Procedures PETE SCREENING SCREENING MAMMOGRAPHY BI 2-VIEW BREAST INC Alessio Chi MD [address] [place] [address] [facility] [address] [place] [address] Referral ID Status Reason Start Date Expiration Date Visits Requested Visits Authorized [id number] Pending Review Auto-Generat ed Referral 09/25/2021 10/25/2022 1 1 [facility] for referral (narrative)* Diagnostic Procedure Only (Routine) - Authorized Specialty Diagnoses / Procedures Referred By Hay locke Referred To Contact [facility] Diagnoses Elevated liver enzymes Procedures US ABD RT UPPER QUADRANT US ABDOMINAL REAL TIME W/IMAGE LIMITED Alessio Lewis MD [address] [place] [address] [facility] Referral ID Status Reason Start Date Expiration Date Visits Requested Visits Authorized [id number] Authorized Auto-Generat ed Referral 10/25/2021 11/24/2022 1 1 T [facility] for referral (narrative)* Diagnostic Procedure Only (Routine) - Authorized Specialty Diagnoses / Procedures Referred By Hay locke Referred To Contact [facility] Diagnoses Screening breast examination Encounter for screening mammogram for malignant neoplasm of breast Procedures PETE SCREENING W OSMAN SCREENING DIGITAL BREAST TOMOSYNTHESIS BI SCREENING MAMMOGRAPHY BI 2-VIEW BREAST INC Alessio Chi MD [address] [place] [address] [facility] [address] [place] [address] Referral ID Status Reason Start Date Expiration Date Visits Requested Visits Authorized [id number] Authorized Auto-Generat ed Referral 10/29/2021 11/28/2022 1 1 [facility] for referral (narrative)* Diagnostic Procedure Only (Routine) - Closed Specialty Diagnoses / Procedures Referred By Contac t Referred To Contact [facility] Diagnoses Screening breast examination Encounter for screening mammogram for malignant neoplasm of breast Procedures PETE SCREENING W OSMAN SCREENING DIGITAL BREAST TOMOSYNTHESIS BI SCREENING MAMMOGRAPHY BI 2-VIEW BREAST INC CAD Alessio Lewis MD [address] [place] [address] [facility] [address] [place] [address] Referral ID Status Reason Start Date Expiration Date V isits Requested Visits Authorized [id number] Closed Auto-Generate d Referral 10/29/2021 11/28/2022 1 1 [facility] for referral (narrative)* Diagnostic Procedure Only (Routine) - Closed Specialty Diagnoses / Procedures Referred By Hay t Referred To Contact [facility] IM[facility] Diagnoses Elevated liver enzymes Procedures US ABD RT UPPER QUADRANT US ABDOMINAL REAL TIME W/IMAGE LIMITED Alessio Lewis MD [address] [place] [address] [facility] Referral ID Status Reason Start Date Expiration Date V isits Requested Visits Authorized [id number] Closed Auto-Generate d Referral 10/25/2021 11/24/2022 1 1 [facility] for referral (narrative)* Diagnostic Procedure Only (Routine) - Closed Specialty Diagnoses / Procedures Referred By Contac t Referred To Contact [facility] IM[facility] Diagnoses Thyroid nodule Procedures US THYROID/PARATHYROID US SOFT TISSUE HEAD & NECK REAL TIME IMGE Aminta Hyde PA-C [address] [place] [address] [place] [address] Referral ID Status Reason Start Date Expiration Date V isits Requested Visits Authorized [id number] Closed Auto-Generate d Referral 12/05/2022 01/04/2024 1 1 [facility] for visit Narrative* Diagnostic Procedure Only (Routine) - Closed Specialty Diagnoses / Procedures Referred By Contac t Referred To Contact [facility] Diagnoses Screening breast examination Encounter for screening mammogram for malignant neoplasm of breast Procedures PETE SCREENING W OSMAN SCREENING DIGITAL BREAST TOMOSYNTHESIS BI SCREENING MAMMOGRAPHY BI 2-VIEW BREAST INC CAD Alessio Lewis MD [address] [place] [address] [facility] [address] [place] [address] Referral ID Status Reason Start Date Expiration Date V isits Requested Visits Authorized [id number] Closed Auto-Generate d Referral 10/29/2021 11/28/2022 1 1 [facility] for visit Narrative* Diagnostic Procedure Only (Routine) - Closed Specialty Diagnoses / Procedures [facility] To [facility] Diagnoses Thyroid nodule Procedures US THYROID/PARATHYROID US SOFT TISSUE HEAD & NECK REAL TIME IMGE DOCAminta Martinez PA-C [address] [place] [address] Us [facility] [id number] Referral ID Status Reason Start Date Expiration Date V isits Requested Visits Authorized [id number] Closed Auto-Generate d Referral 12/05/2022 01/04/2024 1 1 [facility] Summary Purpose Family History No Family History Records FoundNo Family History Records Found Advance Directives No Advanced Directives Records FoundDocuments on File Type Date Recorded Patient Cabinet 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 Expl 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 Advance Directive(s) Advance Directive(s) 05/05/2018 8:25 AM Advance Directive(s) 04/19/2018 5:32 PM Advance Directive(s) 09/24/2017 10:38 PM Documents on File Type Date Recorded Patient Cabinet Mounter 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 Advance Directive(s) Advance Directive(s) 05/05/2018 8:25 AM Advance Directive(s) 04/19/2018 5:32 PM Advance Directive(s) 09/24/2017 10:38 PM Reason for Referral Specialty Diagnoses / Procedures Referred By Hay t Referred To Contact CT IMAGING Diagnoses Localized enlarged lymph nodes Procedures CT NECK SOFT TISSUE WO IVCON CT SOFT TISSUE NECK W/O CONTRAST MATERIAL Aminta Del Rio PA-C [address] [place] [address] [place] [address] Referral ID Status Reason Start Date Expiration Date V isits Requested Visits Authorized [id number] Closed Auto-Generate d Referral 12/19/2022 01/18/2024 1 1 Additional Source Comments INFORMATION SOURCE (unrecogn ized section and content) DATE CREATED AUTHOR AUTHOR'S ORGANJORDEN ATION 05/24/2023 [facility] Source Comments (unrecognize d section and content) In the event this informatio n is protected by the Federal Confidentiality of Alcohol and Drug Abuse Patient Records regulations: The Federal rules restrict any use of the information to criminally investigate or prosecute any alcohol or drug abuse patient.[facility] the event this information is protected by the Federal Confidentiality of Alcohol and Drug Abuse Patient Records regulations: The Federal rules restrict any use of the information to criminally investigate or prosecute any alcohol or drug abuse patient.[facility] the event this information is protected by the Federal Confidentiality of Alcohol and Drug Abuse Patient Records regulations: The Federal rules restrict any use of the information to criminally investigate or prosecute any alcohol or drug abuse patient.[facility] the event this information is protected by the Federal Confidentiality of Alcohol and Drug Abuse Patient Records regulations: The Federal rules restrict any use of the information to criminally investigate or prosecute any alcohol or drug abuse patient.[facility] the event this information is protected by the Federal Confidentiality of Alcohol and Drug Abuse Patient Records regulations: The Federal rules restrict any use of the information to criminally investigate or prosecute any alcohol or drug abuse patient.[facility] the event this information is protected by the Federal Confidentiality of Alcohol and Drug Abuse Patient Records regulations: The Federal rules restrict any use of the information to criminally investigate or prosecute any alcohol or drug abuse patient.[facility] the event this information is protected by the Federal Confidentiality of Alcohol and Drug Abuse Patient Records regulations: The Federal rules restrict any use of the information to criminally investigate or prosecute any alcohol or drug abuse patient.[facility] the event this information is protected by the Federal Confidentiality of Alcohol and Drug Abuse Patient Records regulations: The Federal rules restrict any use of the information to criminally investigate or prosecute any alcohol or drug abuse patient.[facility] the event this information is protected by the Federal Confidentiality of Alcohol and Drug Abuse Patient Records regulations: The Federal rules restrict any use of the information to criminally investigate or prosecute any alcohol or drug abuse patient.[facility] the event this information is protected by the Federal Confidentiality of Alcohol and Drug Abuse Patient Records regulations: The Federal rules restrict any use of the information to criminally investigate or prosecute any alcohol or drug abuse patient.[facility] the event this information is protected by the Federal Confidentiality of Alcohol and Drug Abuse Patient Records regulations: The Federal rules restrict any use of the information to criminally investigate or prosecute any alcohol or drug abuse patient.[facility] the event this information is protected by the Federal Confidentiality of Alcohol and Drug Abuse Patient Records regulations: The Federal rules restrict any use of the information to criminally investigate or prosecute any alcohol or drug abuse patient.[facility] the event this information is protected by the Federal Confidentiality of Alcohol and Drug Abuse Patient Records regulations: The Federal rules restrict any use of the information to criminally investigate or prosecute any alcohol or drug abuse patient.[facility] the event this information is protected by the Federal Confidentiality of Alcohol and Drug Abuse Patient Records regulations: The Federal rules restrict any use of the information to criminally investigate or prosecute any alcohol or drug abuse patient.[facility] the event this information is protected by the Federal Confidentiality of Alcohol and Drug Abuse Patient Records regulations: The Federal rules restrict any use of the information to criminally investigate or prosecute any alcohol or drug abuse patient.[facility] the event this information is protected by the Federal Confidentiality of Alcohol and Drug Abuse Patient Records regulations: The Federal rules restrict any use of the information to criminally investigate or prosecute any alcohol or drug abuse patient.[facility] the event this information is protected by the Federal Confidentiality of Alcohol and Drug Abuse Patient Records regulations: The Federal rules restrict any use of the information to criminally investigate or prosecute any alcohol or drug abuse patient.[facility] the event this information is protected by the Federal Confidentiality of Alcohol and Drug Abuse Patient Records regulations: The Federal rules restrict any use of the information to criminally investigate or prosecute any alcohol or drug abuse patient.[facility] the event this information is protected by the Federal Confidentiality of Alcohol and Drug Abuse Patient Records regulations: The Federal rules restrict any use of the information to criminally investigate or prosecute any alcohol or drug abuse patient.[facility] the event this information is protected by the Federal Confidentiality of Alcohol and Drug Abuse Patient Records regulations: The Federal rules restrict any use of the information to criminally investigate or prosecute any alcohol or drug abuse patient.[facility] the event this information is protected by the Federal Confidentiality of Alcohol and Drug Abuse Patient Records regulations: The Federal rules restrict any use of the information to criminally investigate or prosecute any alcohol or drug abuse patient.[facility] the event this information is protected by the Federal Confidentiality of Alcohol and Drug Abuse Patient Records regulations: The Federal rules restrict any use of the information to criminally investigate or prosecute any alcohol or drug abuse patient.[facility] Care Teams (unrecognized sec tion and content) Manager Semiconductor Relationship Specialty Start Date End Date Alessio Lewis MD [address] [place], [place] [id number] [phone] PCP - General Family Practice 04/09/12 Manager Semiconductor Relationship Specialty Start Date End Date Alessio Lewis MD [address] [facility] [address] PCP - General Family Practice 04/09/12 Manager Semiconductor Relationship Specialty Start Date End Date Alessio Lewis MD [address] [facility] [place] [address] PCP - General Family Practice 04/09/12 Manager Semiconductor Relationship Specialty Start Date End Date Alessio Lewis MD [address] [facility] [place] [address] PCP - General Family Practice 04/09/12 Manager Semiconductor Relationship Specialty Start Date End Date Alessio Lewis MD [address] [facility] [place] [address] PCP - General Family Practice 04/09/12 Manager Semiconductor Relationship Specialty Start Date End Date Alessio Lewis MD [address] [facility] [place] [address] PCP - General Family Practice 04/09/12 Manager Semiconductor Relationship Specialty Start Date End Date Alessio Lewis MD [address] [facility] [place] [address] PCP - General Family Practice 04/09/12 Manager Semiconductor Relationship Specialty Start Date End Date Alessio Lewis MD [address] [facility] [place] [address] PCP - General Family Medicine 04/09/12 Manager Semiconductor Relationship Specialty Start Date End Date Alessio Lewis MD [address] [facility] [place] [address] PCP - General Family Medicine 04/09/12 Manager Semiconductor Relationship Specialty Start Date End Date Alessio Lewis MD [address] [place] [address] PCP - General Family Medicine 04/09/12 Manager Semiconductor Relationship Specialty Start Date End Date Alessio Lewis MD [address] [place] [address] PCP - General Family Medicine 04/09/12 Manager Semiconductor Relationship Specialty Start Date End Date Alesiso Lewis MD [address] [place] [address] PCP - General Family Medicine 04/09/12 Manager Semiconductor Relationship Specialty Start Date End Date Alessio Lewis MD [address] [place] [address] PCP - General Family Medicine 04/09/12 Manager Semiconductor Relationship Specialty Start Date End Date Alessio Lewis MD [address] [place] [address] PCP - General Family Medicine 04/09/12 Manager Semiconductor Relationship Specialty Start Date End Date Alessio Lewis MD [address] [place] [address] PCP - General Family Medicine 04/09/12 Manager Semiconductor Relationship Specialty Start Date End Date Alessio Lewis MD [address] [place] [address] PCP - General Family Medicine 04/09/12 Manager Semiconductor Relationship Specialty Start Date End Date Alessio Lewis MD [address] [place] [address] PCP - General Family Medicine 04/09/12 Manager Semiconductor Relationship Specialty Start Date End Date Alessio Lewis MD [address] [place] [address] PCP - General Family Medicine 04/09/12 Manager Semiconductor Relationship Specialty Start Date End Date Alessio Lewis MD [address] [place] [address] PCP - General Family Medicine 04/09/12 Manager [employer] Relationship Specialty Start Date End Date Alessio Lewis MD [address] [place] [address] PCP - General Family Medicine 04/09/12 Reason for Visit (unrecogniz ed section and content) Reason Comments Results Reason Comments Yearly Exam Reason Comments Radiology US Specialty Diagnoses / Procedures Referred By Contac t Referred To Contact US IMAGING Diagnoses Elevated liver enzymes Procedures US ABD RT UPPER QUADRANT US ABDOMINAL REAL TIME W/IMAGE LIMITED Alessio Lewis MD [address] [place] [address] Us Imaging Referral ID Status Reason Start Date Expiration Date V isits Requested Visits Authorized [id number] Closed Auto-Generate d Referral 10/25/2021 11/24/2022 1 1 Reason Comments Sore Throat Woke up with sore th roat on Thursday12/30/21 with slight cough. This morning noticed white spot in back of throat on right side and was able to pop whatever it was and lots of discharge came out. Sore throat has since relieved Reason Onset Date Comments Refill Request 07/28/2022 Reason Comments Cough Reason Comments Conjunctivitis Redness in right eye started this morning Reason Comments Hearing Loss Specialty Diagnoses / Procedures Referred By Contac t Referred To Contact Audiology / AUDIOLOGY Diagnoses hearing aid eval Procedures HEARING AID EVALUATION Self Radha Hollis, [place] [address] [place] [id number] Referral ID Status Reason Start Date Expiration Date V isits Requested Visits Authorized [id number] Closed Benefit Check 01/21/2023 04/21/2023 1 1 Reason Comments Cough Headache Reason Comments Follow Up Bronchitis Reason Comments Hearing Aid Check Reason Comments Radiology CT Specialty Diagnoses / Procedures Referred By Contac t Referred To Contact CT IMAGING Diagnoses Localized enlarged lymph nodes Procedures CT NECK SOFT TISSUE WO IVCON CT SOFT TISSUE NECK W/O CONTRAST MATERIAL Aminta Del Rio PA-C [address] [facility] [address] [place] [address] Referral ID Status Reason Start Date Expiration Date V isits Requested Visits Authorized [id number] Closed Auto-Generate d Referral 12/19/2022 01/18/2024 1 1 FOR RECORDS PERTAINING TO PATIENTS WHO ARE OR HAVE BEEN ENROLLED IN A CHEMICAL DEPENDENCY/SUBSTANCEABUSE PROGRAM, SOME INFORMATION MAY BE OMITTED. This clinical summary was aggregated from multiple sources. Caution should be exercised in using it in the provision of clinical care. This summary normalizes information from multiple sources, and as a consequence, information in this document may materially change the coding, format and clinical context of patient data. In addition, data may be omitted in some cases. CLINICAL DECISIONS SHOULD BE BASED ON THE PRIMARY CLINICAL RECORDS. [employer] provides no warranty or guarantee of the accuracy or completeness of information in this document.
== END 2023-07-20 16:09 | disposition home or self-care (01) ==
PROVIDERS: Emergency Provider Emergency Medicine; PCP Family Medicine; Visit Provider Emergency Medicine
DX: H81.11 Benign paroxysmal vertigo, right ear (principal); F17.200 Nicotine dependence, unspecified, uncomplicated; E07.9 Disorder of thyroid, unspecified; Z79.899 Other long term (current) drug therapy
CPT/HCPCS: 99282

== ENCOUNTER → 2023-08-27 | Outpatient (CLI) | payer MEDICARE, OTHER, SELFPAY ==
--- NOTE | 2023-08-27 12:29 | MRI_ITS ---
STUDY: MRI BRAIN WITH AND WITHOUT CONTRAST (ATTENTION INTERNAL AUDITORY CANALS - I.A.C.''s) REASON FOR EXAM: Female, 67 years old. DIZZINESS TECHNIQUE: Standardized multiplanar fat and water weighted pulse sequences were obtained. IV 13cc clariscan was administered for the contrast portion of the examination. COMPARISON: None. FINDINGS: Normal bilateral temporal bones. Normal bilateral internal auditory canals. There is no demonstrated intracanalicular or cisternal vestibular schwannoma (acoustic neuroma). There is no enhancement of the bilateral VIIth or VIIIth cranial nerves. Normal bilateral cochlea, vestibules and semicircular canals. Normal size of the ventricles and extra-axial spaces for the patient''s age. Mild periventricular white matter ischemic changes without mass effect or restricted diffusion.. Normal bilateral basal ganglia. Normal thalami. Normal flow voids within the major intracranial circulation suggesting patency by spin echo criteria. Normal venous enhancement. There is no enhancing intra-axial or extra-axial abnormality. There is no extra-axial fluid accumulation. Normal sella turcica, pituitary gland, infundibular stalk, optic chiasm and hypothalamus. Normal tectal plate and pineal gland. Normal midbrain, alan and medulla. Normal cerebellum. Normal basal cisterns. No demonstrated orbital abnormality, within the constraints of a routine brain study. Normal visualized paranasal sinuses. Normal calvarium and skull base. Normal visualized soft tissue structures. Normal visualized upper cervical spine. MRI/Brain W/WO Contrast IMPRESSION: Mild periventricular white matter ischemic changes without evidence for acute infarct. Otherwise normal MRI of the IACs with and without contrast Electronically Signed: Cuco Hannon MD at 17:31 EDT ,
[2023-08-27 13:00] LABS: CREATININE FINGERSTICK < 1.0 mg/dL (0.55-1.02)
== END | disposition home or self-care (01) ==
PROVIDERS: PCP Family Medicine; Referring Provider Otolaryngology; Visit Provider Otolaryngology
DX: R42 Dizziness and giddiness (principal)
CPT/HCPCS: 70553; A9575